=== PATIENT | female | born 1950 | race Caucasian/White ===

== ENCOUNTER → 2021-10-25 10:07 | Outpatient (CLI) | payer OTHER, SELFPAY ==
[2021-10-25 11:43] LABS: Add Manual Diff / Slide Review NO; Basophils Absolute Auto 0 /uL (0-100); Basophils Percent Auto 0.6 % (0-2); Eosinophils Absolute Auto 100 /uL (0-450); Hematocrit 36.2 % (36-46); Hemoglobin 12.4 g/dL (12.0-16.0); Lymphocytes Absolute Auto 1500 /uL (1100-4500); Lymphocytes Percent Auto 25.8 % (25-40); Mean Corpuscular HGB Conc 34.1 % (30-36); Mean Corpuscular Hemoglobin 30.1 PG (26-34); Mean Corpuscular Volume 88.2 fL (80-100); Monocytes Absolute Auto 500 /uL (0-900); Monocytes Percent Auto 8.1 % (3-14); Neutrophils Absolute Auto 3700 /uL (1500-7000); Neutrophils Percent Auto 64.5 % (50-75); Platelet Count 304 X10^3/uL (150-400); Red Cell Distribution Width 13.9 % (11.6-14.8); White Blood Cell Count 5.8 X10^3/uL (4.5-11.0)
[2021-10-25 11:54] LABS: BUN Creatinine Ratio 18.7 (6-22); Blood Urea Nitrogen 14 mg/dL (7-17); Carbon Dioxide 23 mmol/L (22-32); Chloride 105 mmol/L (98-107); Estimated Glomerular Filt Rate > 60 mL/min (>60); Glucose 116 mg/dL (80-110); HEMOLYSIS < 15 (0-50); Potassium 3.5 mmol/L (3.4-5.1); Sodium 137 mmol/L (137-145)
[2021-10-25 11:58] LABS: Hemoglobin A1C% w Est Avg Glu 5.2 % (4.0-6.0)
== END ==
PROVIDERS: PCP Family Medicine; Referring Provider Orthopaedic Surgery Foot and Ankle Surgery; Visit Provider Orthopaedic Surgery Foot and Ankle Surgery
DX: Z01.818 Encounter for other preprocedural examination (principal); R73.9 Hyperglycemia, unspecified; Z01.812 Encounter for preprocedural laboratory examination
CPT/HCPCS: 36415; 80048; 83036; 85025; 93005

== ENCOUNTER → 2021-12-21 12:40 | Outpatient (CLI) | payer OTHER, SELFPAY ==
[2021-12-21 13:24] LABS: COVID19 -Nasal RAPID Negative (Negative)
== END ==
PROVIDERS: PCP Family Medicine; Referring Provider Orthopaedic Surgery Foot and Ankle Surgery; Visit Provider Orthopaedic Surgery Foot and Ankle Surgery
DX: Z20.822 Contact with and (suspected) exposure to COVID-19 (principal)
CPT/HCPCS: 87635; C9803

== ENCOUNTER 2021-12-24 12:14 | Observation (INO) | payer OTHER, SELFPAY ==
[2021-12-15 09:45] VITALS: BMI 32.1
[2021-12-23] VITALS (14 sets, daily range): BP systolic 103–168; BP diastolic 54–91; PULSE 62–92; RESP 13–18; TEMP 35.8–37.1; O2SAT 97–100; BMI 32.1; BMI 34.7
--- NOTE | 2021-12-23 06:00 | DI.RAD.S_ITS ---
PROCEDURE: XR KNEE LT 1TO2V INDICATIONS: prosthesis placement TECHNIQUE: 2 view(s) of the knee acquired. COMPARISON: None. FINDINGS: Bones: Patient is status post knee joint arthroplasty. Hardware components are in expected positions. Visualized bony structures are intact. Soft tissues: Overlying postoperative changes are noted. IMPRESSION: Status post left total knee arthroplasty. Dictated by: Elizabeth Doty M.D. on 12/23/2021 at 11:36 Approved by: Elizabeth Doty M.D. on 12/23/2021 at 11:36
[2021-12-23] MEDS: LACTATED RINGERS 1,000 ML 42 ML IV ×2 (06:54→10:45)
[2021-12-23] MEDS: PREGABALIN 75 MG CAPSULE PO (07:11)
[2021-12-23] MEDS: ACETAMINOPHEN 325 MG TABLET 975 MG PO (07:11)
[2021-12-23] MEDS: CELECOXIB 200 MG CAPSULE PO (07:11)
--- NOTE | 2021-12-23 07:35 | PM.PREOP ---
Pre-operative Note COVID-19 COVID-19 status: Negative Interval Note History & Physical reviewed/Exam performed by Physician: Yes Changes to H&P: No
--- NOTE | 2021-12-23 07:35 | SUR.PREOP ---
Block start time [0737] . Monitoring initiated and maintained throughout procedure. Oxygen and medications given per anesthesiologist instructions. Patient remained stable throughout procedure, no adverse reactions noted. Block end time [0742].
--- NOTE | 2021-12-23 07:43 | SUR.PREOP ---
Time out performed at 0736. with anesthesia and 2 RNs.
[2021-12-23 07:58] LABS: INR 1.1 (0.9-1.3)
[2021-12-23] MEDS: CEFAZOLIN 2 GM/100 ML PREMIX 100 ML IV ×3 (08:08→23:35)
[2021-12-23] MEDS: TRANEXAMIC ACID 1,000 MG VIAL 1000 MG INJ ×2 (08:10→10:10)
--- NOTE | 2021-12-23 08:34 | SUR.OPER ---
Supine on padded OR bed. Pillow under head, arms secured on padded armboards <90 degree abduction. Safety belt across torso. Non-operative leg secured with tape over blanket over lower leg. Operative leg secured in DeMayo positioner and in control of the Surgeon. Foam padded brace at thigh of operative leg.
[2021-12-23] MEDS: MORPHINE 4 MG/ML INJ INJ (08:45)
[2021-12-23] MEDS: BUPIVACAINE 0.25% (PF) 60 ML, EPINEPHrine 0.3 MG INJ (08:45)
[2021-12-23] MEDS: BUPIVACAINE LIPOSOME 266 MG/20 ML VIAL INJ (09:28)
--- NOTE | 2021-12-23 10:33 | P.OP_ITS ---
Operative Date/Time/Diagnoses Date of procedure: 12/23/21 Time of procedure: 08:33 Pre-op diagnosis: Left knee arthritis M17.12 Long-term use of anticoagulation Post-op diagnosis: same Procedure & Clinicians Procedure: 1. Total knee arthroplasty, left CPT code 19236 Same procedure as scheduled: Yes Indications: The patient is a 71 year old female with end-stage [id number] left knee arthritis. The patient has a significant bilateral varus knee arthritis. They have failed conservative treatment with activity modifications, injections, physical therapy and bracing. They has been indicated for total knee replacement. The risks and benefits of the procedure have been discussed with the patient even opportunity to ask questions. The risks of surgery include but are not limited to infection, malalignment, fracture, loosening, persistence of pain, damage to nerves and blood vessels, need for additional procedures, DVT, PE, cardiopulmonary complications and . The patient expressed a thorough understanding of the risks and benefits of surgery and has elected to proceed. Consent was signed in the office. 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 Stop warfarin 5 days before surgery and was placed on Lovenox bridge. She will resume home dose of warfarin on postoperative day 0 in the evening and the Lovenox bridge postop day 1. She will follow up with her anticoagulation clinic. During the operation the services of physician business assistant were medically indicated and necessary to provide the exposure of the operative site for the surgical procedure and to maintain the limb in a proper position to carry out the procedure safely and efficiently. Without a qualified freezer assistant being present this would extend the operative procedure and would have made the procedure more technically difficult to perform. The business assistant was medically necessary for the proper positioning, retraction and manipulation of the limb, proper exposure, and manipulation of the tissue for implantation implants and closure. Surgeon: Monica Hernandez Compressor Station Engineer: Elisha Marquis Anesthesia Type: Spinal Operative Notes Findings: Tricompartmental osteoarthritis with bone spurs subchondral sclerosis degenerative meniscal tears and end-stage arthritic changes left knee Closure Type: primary Specimen(s): none sent Prosthetic devices, grafts, tissues, transplants, or devices: Dukes and nephew Journey II BCS femur left size 5 cobalt chromium Dukes and Nephew Journey tibia base plate non porous size 5 left Journey BCS poly left size 5-6, thickness 9 mm Round patella Praveena II 35 mm x 9 mm Estimated Blood Loss (mL): 30 Blood products transfused: none Tourniquet time (min): 103 Procedure in detail: Patient was seen in the preoperative area where the patient and site of surgery were identified in the operative knee was marked informed consent confirmed. This was the left knee. Patient received the appropriate preoperative antibiotics this was 2 g of Ancef. And other preoperative medications and was taken to the operating room placed on operating table in the supine position. Spinal anesthetic were administered. The operative extremity was then prepped and draped in the standard sterile fashion with a nonsterile tourniquet high on the thigh. Patient was placed on the green foam bolsters. A lateral post was placed at the level of the proximal thigh /trochanter area as a lateral post. Formal time-out procedure was performed confirming the patient's side and site of surgery and administration of appropriate preoperative antibiotics and implants were in the room accounted for. All were in agreement. Patient received a preoperative dose of tranexamic acid and then a 2nd dose at tourniquet release Patient was prepped and draped in the standard sterile fashion and the foot was placed into the [facility] leg montes. This was taken into high flexion and the incision was marked out over the anterior knee to the level of the medial tubercle tubercle. The Esmarch was then used for exsanguination and the tourniquet was inflated to 250 mmHg. Was made through the skin and subcutaneous tissue in high flexion this was then brought down into 30? of flexion for the medial parapatellar arthrotomy. A marker pen was used to mary the arthrotomy site for later repair. Joint fluid was evacuated. The anterior osteophytes and soft tissues were removed. Routine medial release was initially made along the medial proximal tibia with Bovie. The patella was on quite a bit of tension on attempted eversion so the quad incision was lengthened to relax it and then the patella was 1st cut using the s aw sized and prepped and then subluxed throughout the case and protected. The leg was then taken into extension and the patella was everted and the patella was cut to accommodate the patellar button. This was sized to a 35 mm button for a 9 mm thickness to recreate the original dimensions of the patella. Poly was removed and the protector replaced and the patella was subluxed and the knee was taken back up into flexion and attention was returned to the femur. Then the rotational landmarks of Whitesides line and the trans epicondylar axis were marked on the femur with electrocautery. Then the intramedullary guide for the femur was created. The distal femoral cut was made in 6? of valgus using the intramedullary guide with the cut setting on 0+ as the patient did not have a preoperative flexion contracture. The ACL and PCL released. The proximal tibia was then cut using the intramedullary guide, taking 9 mm off the less involved side this was the lateral plateau. The Chalo wing was used to check the slope through the guide. Second pass was made through the tibial cut guide with the saw after the cut tibia was removed plane down about 1 more mm and further smooth then the resection surface. In extension remainders of the medial and lateral menisci were removed. The extension flexion gaps were then checked using both the flexion extension blocks. And was selected for a 9 mm poly femur was then sized and the rotation set using the posterior condyle referencing 3? of external rotation. This measured a size 5. Cut block was then placed and the anterior, posterior and chamfer cuts were then made. The posterior osteophytes and soft tissues were then removed. Then in extension the posterior capsule was injected with a mixture of 40 mL of 0.25% Marcaine and 20 mL of Exparel care to avoid excessive injection posterior laterally. The remainder of this was saved for the capsule and subcutaneous tissue and placed during cement curing. Attention was then returned to the tibia and this was prepared with the rotation set by the extramedullary guide. Lined up with the tibial crest and the 2nd toe. The tibial trial was then pinned in place and the trial femoral components were placed. Then the intercondylar notch was cut through the femoral trial to create the box this was done with the distal than the proximal drill and then the box cut distally and then proximally. Next the insert was placed and the trial poly placed. This was stable in flexion and extension and there was a 0- 135 degree range of motion. The tibia was then finished with the drill and flange cuts and then this was removed. All trials were removed. The wound and bone was irrigated with pulsatile lavage. This was then dried with a sponge. The components were verified and opened and the cement was mixed. Cement was applied to the components and then to the bone then the tibia was cemented in place 1st followed by the femur then the patella. Excess cement was removed. With care looking around the back of the knee. Remainder of the injection was injected around the capsule. trial poly was placed back in the leg was placed into extension for the patellar cementing. After this was cured approximately 15 minutes later and the dilute Betadine solution was placed for at least 3 minutes in the wound this was then irrigated out and the final poly was placed. This was a 9 mm poly. The tourniquet was released hemostasis was achieved. Final g of tranexamic acid was given IV at the time of tourniquet release. The capsule was closed with 1. Ethibond suture. Subcutaneous layer was closed with 3-0 Vicryl suture. Skin was closed with a running V lock suture Stratafix Monocryl type suture and Dermabond. An ian dressing was placed given this patient's requirements of strong anticoagulation. An Favio wrap was applied. Anesthetic was terminated the patient was woken from anesthesia and taken to recovery room in good condition. There no immediate complications from this procedure. The patient will be maintained on a standard total knee replacement protocol with weight-bearing as tolerated. Complications: none Post-operative Condition: stable Disposition: PACU Plan for aftercare: Weightbear as tolerated. Ian dressing will remain in place. Will start range of motion and ambulation with physical therapy. Will receive 2 doses of postoperative antibiotics. Will restart home dose 5 mg of warfarin tonight then Lovenox bridge in the morning. Discharge when cleared by therapy. Follow-up in 2 weeks in Orthopedic Clinic
[2021-12-23] MEDS: HYDROCODONE/ACET 5/325 TABLET 1 TAB PO ×2 (12:09→21:19)
--- NOTE | 2021-12-23 12:46 | SUR.PHASEI ---
Straight cath done using sterile technique, 350 mls emptied. Tolerated well .
[2021-12-23] MEDS: LACTATED RINGERS 1,000 ML 100 ML IV ×2 (13:54→23:35)
[2021-12-23] MEDS: HYDROCODONE/ACET 5/325 TABLET 2 TAB PO (15:07)
--- NOTE | 2021-12-23 15:45 | PT.IIE ---
Current Diagnoses Bilateral primary osteoarthritis of knee (12/23/21) Unilateral primary osteoarthritis, left knee (12/23/21) Other specified joint disorders, unspecified knee (12/23/21) Surgery Performed Operation Date: 12/23/21 07:45 Actual Procedures p Total Knee Arthroplasty(Left) - Monica Hernandez MD Surgical History (Last Updated 12/15/21 @ 10:09 by Darshana Evans RN) History of bilateral tubal ligation History of orthopedic surgery History of surgery Hx of repair of right rotator cuff Medical History (Last Updated 12/15/21 @ 10:09 by Darshana Evans RN) DVT (deep venous thrombosis) (~2009) Osteoarthritis Physical Therapy Inpatient Evaluation/Re-Eval M1 PT/OT-IP Prior Functional Status Start: 12/23/21 16:52 Freq: NEEDED Status: Active Protocol: Document 12/23/21 15:45 AB (Rec: 12/23/21 17:01 AB [id number]) Medical Review Prior Functional Status Medical History Reviewed Yes Communication able to make needs known Mobility and Gait pt stated that she is modified independent with all mobilities using a SPC indoors but occasionally without AD; uses SPC outdoors at all times Social History Household Members spouse Living Arrangements House Number of Floors (Floors) 3 or More Floors Number of Stairs To Enter/Railing? 5 steps without rails to enter ; pt plans to stay on main level of the house Home Environment Standard Height Toilet,Tub/ Shower Home Equipment Front Wheel Walker,Straight Cane Additional Social History Comment pt plans to stay on the main level of the house and will sleep on a couch recliner M2 PT-IP Current Condition Start: 12/23/21 16:52 Freq: NEEDED Status: Active Protocol: Document 12/23/21 15:45 AB (Rec: 12/23/21 17:01 AB [email or web address]) Physical Therapy Current Condition Current Condition Evaluation Date 12/23/21 Treatment Diagnosis s/p L TKA; difficulty in walking Onset Date 12/23/21 M3 PT-IP Subjective Start: 12/23/21 16:52 Freq: NEEDED Status: Active Protocol: Document 12/23/21 15:45 AB (Rec: 12/23/21 17:01 AB [email or web address]) Subjective Physical Therapy Visit Type Type Initial Evaluation Visit Start Time 15:45 Visit Stop Time 16:35 Total Visit Minutes 50 Number of REGISTERED APPRAISER Visits 0 Physical Therapy Visit Comments Patient Comments agreeable to do PT Therapy Pain Assessment Pain When Pain Assessed At Rest Pain Present Pain Present Pain Reported Location Left Knee Intensity 3 Scale Used increases to 4/10 with mobility M4 PT-IP Mobility and Gait Start: 12/23/21 16:52 Freq: NEEDED Status: Active Protocol: Document 12/23/21 15:45 AB (Rec: 12/23/21 17:01 AB [id number]) PT-Bed Mobility Assessment Supine to Sit Supine to Sit Standby Assistance Sit to Supine Sit to Supine Standby Assistance PT-Transfer Assessment Sit to and From Stand Sit to and from Stand Moderate Assistance,1 Person Assistance,Use of Upper Extremities Equipment Transfer Assistive Device Gait Belt,Front Wheeled Walker Orthotic/Prosthetic Devices or Brace: No Comments Mobility Comments spouse in room with pt. BP: 158/86. pt completed supine to sit SBA . able to sit on EOB SBA. completed sit to stand mod A and cues and ambulated in room ~ 12 ft using FWW mod A and cues. assisted with quads activation. pt requested to go back to bed. completed sit to supine SBA. positioned pt in bed. call light and table placed within reach. caregiver training set up with spouse tomorrow at 9 am Gait Assessment Gait Gait Assistance Required: Moderate Assistance Distance (Feet) 12 Able to Maintain Weight Bearing Status Yes During Gait Assistive Devices Assistive Device Gait Belt,Front Wheeled Walker Orthotic/Prosthetic Devices or Brace: No Gait Deviations General Gait Pattern Antalgic,Decreased Stride Length,Decreased Feet Clearance,Step-to Gait Factors Limiting Gait Function Factors Limiting Gait Function Decreased Activity Tolerance, Decreased Strength,Difficulty Following Directions,Limited Range of Motion,Pain,Poor Balance,Poor Safety Awareness PT-Balance Assessment Sitting Balance and Reactions Static Sitting Balance Ability Normal Dynamic Sitting Balance Ability Good Standing Balance and Reactions Static Standing Balance Ability Fair Dynamic Standing Balance Ability Fair Device Used FWW M5 PT-IP Objective Assessments Start: 12/23/21 16:52 Freq: NEEDED Status: Active Protocol: Document 12/23/21 15:45 AB (Rec: 12/23/21 17:01 AB [id number]) Orientation Orientation/Cognition Level of Alertness Alert Orientation Name,Place,Situation Language Function Ability No Deficits Noted Safety Awareness Decreased Safety Awareness Memory Description No Deficits Noted Gross Range of Motion Lower Extremity ROM Assessment Left Impaired Impairments L knee flexion: ~ 70 deg Strength Lower Extremity Strength Assessment Left Impaired Hip 4-/5 Knee 3+/5 Coordination Assessment Gross Coordination Gross Coordination WNL Sensation Assessment Sensation Gross Sensation WNL Muscle Tone Muscle Tone WNL Yes M6 PT-IP Treatment Start: 12/23/21 16:52 Freq: NEEDED Status: Active Protocol: Document 12/23/21 15:45 AB (Rec: 12/23/21 17:01 AB [id number]) Physical Therapy Treatment Education Education Provided Precautions,Weight Bearing Status,Post-Op Packet,Safety M7 PT-IP Assessment and Plan Start: 12/23/21 16:52 Freq: NEEDED Status: Active Protocol: Document 12/23/21 15:45 AB (Rec: 12/23/21 17:01 AB [email or web address]) PT Summary Assessment and Plan Potential Rehabilitation Potential Good Status of Condition at Evaluation Evolving Summary Impairments Pain,ROM,Strength,Balance, Coordination,Sensation,Tone, Cognition,Bed Mobility, Transfers,Gait,Activity Tolerance Assessment Summary Pt with s/p L TKA and just had surgery this morning. pt requiring mod A with mobility using FWW and will likely progress during hospital stay. caregiver training set up at 9am tomorrow. will continue to assess progress. Goals Bed Mobility Goal Independent Transfer Goal Independent,Front Wheeled Walker Gait Goal Independent,Front Wheel Walker Gait Distance 150 Other Goals up/down 5 steps SPC/ACCOUNTS PAYABLE ADMINISTRATOR min A Days to Meet Goals 5 Frequency of Treatment Frequency Of Treatment Twice a Day Treatment Plan Physical Therapy Treatment Plan Bed Mobility Training,Transfer Training,Gait Training, Therapeutic Exercise,Balance Retraining,Post Op Education, Discharge Planning,Hot or Cold Pack,Neuromuscular Re-ed, Coordination Retraining,Manual Therapy Weight Bearing Status Weight Bearing Status Weight Bear as Tolerated Allowed Weight Bearing Amount (enter % LLE WBAT or #) (%) Recommendations To Nursing Amount of Assist Needed 1 Person Assist Discharge Recommendations PT Discharge Recommendations Home with Assistance, Outpatient PT Transportation Needs at Discharge Private Vehicle
[2021-12-23] MEDS: ACETAMINOPHEN 325 MG TABLET 650 MG PO ×2 (18:17→23:36)
[2021-12-23] MEDS: WARFARIN 5 MG TABLET PO (21:18)
[2021-12-23] MEDS: DOCUSATE 100 MG CAPSULE PO (21:18)
[2021-12-23] MEDS: ENOXAPARIN 100 MG/ML SYRINGE 95 MG SUBCUT (21:44)
[2021-12-24] MEDS: HYDROCODONE/ACET 5/325 TABLET 1 TAB PO (02:16)
[2021-12-24 02:32] VITALS: BP 148/73; PULSE 94; RESP 19; TEMP 36.6; O2SAT 96
--- NOTE | 2021-12-24 03:32 | PC.NURSE ---
Called construction accountant Dr. Montilla for clarification regarding Lovenox. Patients presurgical paperwork stated that Lovenox would start tomorrow but Dr. Hernandez wrote order for Lovenox to start tonight. Per Dr. Montilla, start Lovenox tonight.
[2021-12-24 06:41] VITALS: BP 156/74; PULSE 96; RESP 18; TEMP 36.1; O2SAT 99
[2021-12-24 07:26] LABS: Hematocrit 30.9 % (36-46); Hemoglobin 10.5 g/dL (12.0-16.0)
[2021-12-24] MEDS: HYDROCODONE/ACET 5/325 TABLET 2 TAB PO (08:11)
[2021-12-24] MEDS: DOCUSATE 100 MG CAPSULE PO ×2 (08:12→21:21)
[2021-12-24] MEDS: ENOXAPARIN 100 MG/ML SYRINGE 95 MG SUBCUT ×2 (08:12→21:20)
--- NOTE | 2021-12-24 09:05 | PT.IPTN ---
Current Diagnoses Bilateral primary osteoarthritis of knee (12/23/21) Unilateral primary osteoarthritis, left knee (12/23/21) Other specified joint disorders, unspecified knee (12/23/21) Surgery Performed Operation Date: 12/23/21 07:45 Actual Procedures p Total Knee Arthroplasty(Left) - Monica Hernandez MD Physical Therapy Treatment Note M2 PT-IP Current Condition Start: 12/23/21 16:52 Freq: NEEDED Status: Active Protocol: Document 12/23/21 15:45 AB (Rec: 12/23/21 17:01 AB [id number]) Physical Therapy Current Condition Current Condition Evaluation Date 12/23/21 Treatment Diagnosis s/p L TKA; difficulty in walking Onset Date 12/23/21 M3 PT-IP Subjective Start: 12/23/21 16:52 Freq: NEEDED Status: Active Protocol: Document 12/24/21 09:05 AB (Rec: 12/24/21 12:37 AB [id number]) Subjective Physical Therapy Visit Type Type Treatment Note Visit Start Time 09:05 Visit Stop Time 09:52 Total Visit Minutes 47 Number of BENZENE WORKER Visits 0 Physical Therapy Visit Comments Patient Comments agreeable to do PT Therapy Pain Assessment Pain When Pain Assessed At Rest Pain Present Pain Present Pain Reported Location Left Knee Intensity 2 Scale Used 5/10 with mobility Pain Management Techniques Apply Cold,Distraction, Modification of Treatment,Re- positioning,Timing of Activity with Medications M4 PT-IP Mobility and Gait Start: 12/23/21 16:52 Freq: NEEDED Status: Active Protocol: Document 12/24/21 09:05 AB (Rec: 12/24/21 12:37 AB [id number]) PT-Bed Mobility Assessment Supine to Sit Supine to Sit Standby Assistance PT-Transfer Assessment Sit to and From Stand Sit to and from Stand Contact Guard Assistance, Minimal Assistance,1 Person Assistance,Use of Upper Extremities Equipment Transfer Assistive Device Gait Belt,Front Wheeled Walker Orthotic/Prosthetic Devices or Brace: No Transfers Transfer Destination Chair Transfer Technique Stand Step Pivot Transfer Ability Level of Assist Contact Guard Assistance, Minimal Assistance,Use of Upper Extremities Comments Mobility Comments completed heel slides in bed. educated spouse on how to assist pt. completed supine to sit SBA. able to sit on EOB SBA. caregiver training conducted. educated spouse on how to use safety belt and how to assist pt. spouse was able to put safety belt on pt and assisted pt with sit to stand CGA to min A and ambulated pt in room ~ 20 ft CGA to min A. pt c/o increase pain and needing increase rest breaks in between tasks. completed sit to stand from chair CGA and able to stand using FWW for support CGA. instructed to do single leg stand on LLE using BUE on FWW for support and completed with 5 sec hold min to mod A. completed again with just RUE support on FWW max A. educated pt and spouse on stair climbing using SPC and CONSUMER MARKETING ANALYST. pt completed up/down step stool using SPC and CONSUMER MARKETING ANALYST max A and max cues. pt repeated with spouse assisting and PT on other side to assist and completed max A and max cues. pt stated that she has to sit down and unable to do further activities. c/o increase pain. positioned pt on chair. call light and table placed within reach. informed nurse regarding pt's pain. set up another caregiver training this afternoon at 1 pm. Gait Assessment Gait Gait Assistance Required: Contact Guard Assist,Minimum Assistance Distance (Feet) 20 Able to Maintain Weight Bearing Status Yes During Gait Assistive Devices Assistive Device Gait Belt,Front Wheeled Walker Orthotic/Prosthetic Devices or Brace: No Gait Deviations General Gait Pattern Antalgic,Decreased Stride Length,Decreased Feet Clearance,Flexed Trunk Factors Limiting Gait Function Factors Limiting Gait Function Decreased Activity Tolerance, Decreased Strength,Limited Range of Motion,Pain,Poor Balance,Poor Safety Awareness Stair Climbing Assessment Evaluation Level of Assist On Stairs Maximal Assistance,1 Person Assistance Devices Stair Climbing Assistive Devices Straight Cane Technique/Endurance Stair Climbing Direction Ascend and Descend Stair Climbing Technique Step to Step Number of Steps Climbed 1 Stair Climbing Set # Repetitions (reps) 2 M5 PT-IP Objective Assessments Start: 12/23/21 16:52 Freq: NEEDED Status: Active Protocol: Document 12/23/21 15:45 AB (Rec: 12/23/21 17:01 AB [id number]) Orientation Orientation/Cognition Level of Alertness Alert Orientation Name,Place,Situation Language Function Ability No Deficits Noted Safety Awareness Decreased Safety Awareness Memory Description No Deficits Noted Gross Range of Motion Lower Extremity ROM Assessment Left Impaired Impairments L knee flexion: ~ 70 deg Strength Lower Extremity Strength Assessment Left Impaired Hip 4-/5 Knee 3+/5 Coordination Assessment Gross Coordination Gross Coordination WNL Sensation Assessment Sensation Gross Sensation WNL Muscle Tone Muscle Tone WNL Yes M6 PT-IP Treatment Start: 12/23/21 16:52 Freq: NEEDED Status: Active Protocol: Document 12/24/21 09:05 AB (Rec: 12/24/21 12:37 AB [id number]) Physical Therapy Treatment Exercises Exercises Heel Slides Education Education Provided Safety M7 PT-IP Assessment and Plan Start: 12/23/21 16:52 Freq: NEEDED Status: Active Protocol: Document 12/24/21 09:05 AB (Rec: 12/24/21 12:37 AB [id number]) PT Summary Assessment and Plan Potential Rehabilitation Potential Fair Summary Impairments Pain,ROM,Strength,Balance, Coordination,Sensation,Tone, Cognition,Bed Mobility, Transfers,Gait,Activity Tolerance Progress Towards Goals Slow Progress due to Pain Assessment Summary Caregiver training conducted but further training is needed . Pt also unable to tolerate much activity to complete caregiver training. pt needing max A with stair climbing and at this time is unable to tolerate activity to be able to complete number of steps to d/c home safely. will continue to assess progress. caregiver training set up this afternoon at 1 pm. Goals Bed Mobility Goal Independent Transfer Goal Independent,Front Wheeled Walker Gait Goal Independent,Front Wheel Walker Gait Distance 150 Other Goals up/down 5 steps SPC/CONSUMER MARKETING ANALYST min A Days to Meet Goals 5 Frequency of Treatment Frequency Of Treatment Twice a Day Treatment Plan Physical Therapy Treatment Plan Bed Mobility Training,Transfer Training,Gait Training, Therapeutic Exercise,Balance Retraining,Post Op Education, Discharge Planning,Hot or Cold Pack,Neuromuscular Re-ed, Coordination Retraining,Manual Therapy Weight Bearing Status Weight Bearing Status Weight Bear as Tolerated Allowed Weight Bearing Amount (enter % LLE WBAT or #) (%) Recommendations To Nursing Amount of Assist Needed 1 Person Assist Discharge Recommendations PT Discharge Recommendations Home with Assistance, Outpatient PT Transportation Needs at Discharge Private Vehicle
--- NOTE | 2021-12-24 09:46 | P.DS_ITS ---
History of Present Illness History of Present Illness Date Patient Seen: 12/24/21 Time Patient Seen: 09:46 Chief complaint: Knee pain Narrative: Patient states her knee pain is been mild at rest and more moderate to severe with activity. No fever or chills. No nausea or vomiting. Discharge Providers Provider Discharge Date: 12/24/21 Primary care physician: Jl Catalan MD Consults: 12/23/21 12:41 Consult to Discharge Planning Routine Comment: Consult to Physical Therapy Evaluate & Treat Comment: Physician Instructions: postop TKA protocol Consult to Respiratory Therapy Evaluate & Treat Comment: Physician Instructions: Evaluate and treat Discharge provider: Al Jackman PA-C Summary Hospital Course Discharge Diagnosis: Left knee osteoarthritis, long-term use of anticoagulation Hospital Course: 1. Total knee arthroplasty, left CPT code 21609 Same procedure as scheduled: Yes Indications: The patient is a 71 year old female with end-stage [id number] left knee arthritis.? The patient has a significant bilateral varus knee arthritis. They have failed conservative treatment with activity modifications, injections, physical therapy and bracing.? They has been indicated for total knee replacement.? The risks and benefits of the procedure have been discussed with the patient even opportunity to ask questions.? The risks of surgery include but are not limited to infection, malalignment, fracture, loosening, persistence of pain, damage to nerves and blood vessels, need for additional procedures, DVT, PE, cardiopulmonary complications and .? The patient expressed a thorough understanding of the risks and benefits of surgery and has elected to proceed.? Consent was signed in the office. 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 Stop warfarin 5 days before surgery and was placed on Lovenox bridge.? She will resume home dose of warfarin on postoperative day 0 in the evening and the Lovenox bridge postop day 1.? She will follow up with her anticoagulation clinic. During the operation the services of physician surgical first assistant were medically indicated and necessary to provide the exposure of the operative site for the surgical procedure and to maintain the limb in a proper position to carry out the procedure safely and efficiently.? Without a qualified diploma dental assistant being present this would extend the operative procedure and would have made the procedure more technically difficult to perform.? The surgical first assistant was medically necessary for the proper positioning, retraction and manipulation of the limb, proper exposure, and manipulation of the tissue for implantation implants and closure. Surgeon: Monica Hernandez Prestidigitator: Elisha Marquis Anesthesia Type: Spinal Operative Notes Findings: Tricompartmental osteoarthritis with bone spurs subchondral sclerosis degenerative meniscal tears and end-stage arthritic changes left knee Closure Type: primary Specimen(s): none sent Prosthetic devices, grafts, tissues, transplants, or devices: Dukes and nephew Journey II BCS femur left size 5 cobalt chromium Dukes and Nephew Journey tibia base plate non porous size 5 left Journey BCS poly left size 5-6, thickness 9 mm Round patella Praveena II 35 mm x 9 mm Estimated Blood Loss (mL): 30 Blood products transfused: none Tourniquet time (min): 103 Patient admitted to the hospital for left total knee arthroplasty. Patient consented to the same. Patient underwent left total knee arthroplasty December 23, 2021. Patient back in her room recovering well as in stable condition. Weightbear as tolerated.? Velasquez dressing will remain in place.? Will start range of motion and ambulation with physical therapy.? Will receive 2 doses of postoperative antibiotics.? Will restart home dose 5 mg of warfarin tonight then Lovenox bridge in the morning.? Discharge when cleared by therapy.? Follow-up in 2 weeks in Orthopedic Clinic Status at Discharge Cognitive/behavioral status at discharge: at baseline, oriented Functional status at discharge: uses cane/walker Overall status at discharge: patient is progressing back to baseline Exam Vital Signs (past 8 hours): - 12/24/21 02:32 12/24/21 06:41 Temperature 97.8 F 97 F L Pulse Rate 94 H 96 H Respiratory Rate 19 18 Blood Pressure 148/73 H 156/74 H Pulse Oximetry 96 99 Oxygen Flow Rate 0 Oxygen Delivery Method Room Air Oxygen Flow Rate 0 Narrative Exam Narrative: 71-year-old female sitting comfortably in bedside chair no apparent distress. Velasquez dressing is on and functioning. Dressing is Clean, dry, intact.. Motor functions intact distal left lower extremity. Sensation grossly intact to light touch distal left lower extremity. Const General: cooperative and comfortable Nutritional Appearance: average body habitus Resp Effort & Inspection: normal respiratory effort and able to speak in complete sentences Objective Labs Result Diagrams: 12/24/21 06:57 Labs: Laboratory Results - last 24 hr 12/24/21 06:57 Hgb 10.5 L Hct 30.9 L PFSH Medical History DVT (deep venous thrombosis) (~2009) Osteoarthritis Surgical History History of bilateral tubal ligation History of orthopedic surgery History of surgery Hx of repair of right rotator cuff Social History household members: spouse Smoking Status: Former smoker alcohol intake: current Discharge Assessment & Plan Assessment and Plan Assessment: Patient progressing as expected status post left total knee arthroplasty Plan of Treatment: Weightbear as tolerated.? Velasquez dressing will remain in place.? Will start range of motion and ambulation with physical therapy.? Will receive 2 doses of postoperative antibiotics.? Restarted home dose 5 mg of warfarin last night then Lovenox bridge this morning.? Discharge home today when cleared by therapy.? Follow-up in 2 weeks in Orthopedic Clinic Discharge Plan Discharge Plan Patient Disposition: Home Provider Discharge Comment: Discharge home today after physical therapy if safe for home environment Discharge orders & Medications Discharge Orders: Discharge (Order); Ordered 12/24/21 Ordered By: Al Jackman Prescriptions: New acetaminophen 325 mg Tablet 650 mg PO Q6HR Qty: 60 0RF hydrocodone-acetaminophen 5-325 mg Tablet 2 tab PO Q4HR PRN (Reason: Pain, Moderate (4-6)) Qty: 60 0RF Continued warfarin 5 mg Tablet 5 mg PO DAILY enoxaparin [Lovenox] 100 mg/mL Syringe 100 mg SUBCUT DAILY Discontinued acetaminophen 500 mg Tablet 1,000 mg PO Q6H PRN (Reason: Pain) Follow up/Referrals: Monica Hernandez MD [Physician] - (2 weeks) Jl Catalan MD [Primary Care Provider] - Diet/Activity/Treatments Diet: Diet as Tolerated Activity: Weight-bearing as tolerated Other treatments: Patient started back on her home dose of 5 mg of warfarin and will bridge Lovenox Skin/Wound/Dressing Care Report to your healthcare provider any signs of infection, such as:: chills, fever, increased pain, unusual drainage and unusual redness Dressing: Keep dressing clean and dry Other wound treatment: Postoperative total knee instructions Dressing/Wound care: -may Remove the Favio wrap 48 hours after surgery. -Keep velasquez dressing or Aquacell dressing in place until postoperative follow-up office visit. -you may see some drainage on the bandage, this is ok. If it is leaking or saturated, then the dressing can be changed to clean gauze or a clean surgical dressing from a pharmacy or reinforced with additional gauze and paper tape or dressings over the top. Otherwise, just keep dressing in place until follow up. -if you have been given a velasquez dressing this dressing has a VAC in it that works for 7 days then will turn off at that point the battery pack can be cut off but the rest of the dressing should remain in place. -Okay to shower. Keep wound out of direct water stream. No soaking or submerging until all the scabs fall off (approximately 6 weeks). -Please call the office if dressing becomes significantly wet, soiled, or saturated. Activities: -Weight-bearing as tolerated. Use front wheeled walker, and progress to cane when safe. -Continue with home exercises as directed by your physical therapist. -Elevate ?toes above the nose if you have significant swelling in your lower leg. (A wedge pillow is easiest.) -Ice your incision as needed for pain/inflammation/swelling. Protect your skin with a folded pillowcase. -do not put any pillows directly injury Uni you may to the patella under your heal but the goal is to make sure that your knee can fully straighten. Follow-up: -Follow-up with your surgeon or PA in the office in 10-14 days after surgery. -Follow-up with your surgeon 6 weeks postoperatively. Call the office if you have chest pain, shortness of breath, significant swelling that will not resolve with elevating, fever over 101?, significantly worsening pain. [facility]: [phone] You have been discharged with medications. These have already been sent to your pharmacy. Pain include pain medications: Oxycodone or [place]: take 5 mg orally every 4 hours as needed for pain. If your pain is more severe you may take up to 2 every 4 hours for pain. Take the smallest dose necessary. Narcotic medication can make you feel constipated. You can get wfsy-rwb-[id number] stool softener such as docusate sodium-Colace at a pharmacy to help with this. And acetaminophen (Tylenol) take 500-1000 mg 3 times a day for pain control. You also have a prescription for Zofran (ondansetron) this is a strong anti nausea medication that can be taken up to every 8 hours as needed for nausea You will be restarted on your home dose of Coumadin on the day of surgery at night and then restart the Lovenox bridge on the 1st day after surgery. Then follow the instructions from your anticoagulation clinic. Visit Report/Discharge Packet Instructions: DI for Knee Replacement Stand Alone Forms: Surgery Discharge Discharge Data Primary Care Provider: Jl Catalan Attending Provider: Monica Hernandez VTE Deep Vein Thrombosis/Pulmonary Embolism Present on Admission: No
[2021-12-24] MEDS: HYDROMORPHONE 2 MG TABLET PO ×4 (10:21→21:19)
--- NOTE | 2021-12-24 10:52 | CM.DANOTE ---
DCP: Case received, EMR reviewed and met with patient. Spouse, Ja, was at bedside. Introduced self and role. Was able to obtain information regarding patient's baseline activity status prior to hospitalization. DCP assessment completed with information currently available. Patient is a 71 year old female who admitted yesterday morning to the care of the orthopedic team. PCP: Dr. Catalan. Payer: confirmed: [facility] Patient came to the hospital via private vehicle for a surgical procedure. Patient had left total knee arthroplasty. Patient has history of osteoarthritis. Met with patient in her room. Spouse was at bedside. Patient resides in [facility] with spouse, Ja. At her baseline, she uses a cane, otherwise, is independent. P: Patient should be able to go home when medically stable. Mary Jacobo RN/Mobile Heavy Equipment Mechanic Discharge Planning/Care Management CM Discharge Assessment Start: 12/24/21 10:45 Freq: Status: Active Protocol: Document 12/24/21 10:50 (Rec: 12/24/21 10:52 [id number]) Discharge Planning Assessment Assigned Data Collection Specialist Mary Jacobo RN/Mobile Heavy Equipment Mechanic Advance Directives? Yes Advance Directives on File No History Provided By Patient,Medical Record Prior Living Arrangements House Household Members spouse Type of transporation used prior to Drives own vehicle admit Independent with ADL's Yes Is patient alert and oriented? Yes DME Already Rented / Owned Cane Patient/Family Preference OP PT Therapy Barriers to Discharge No Comment Has a supportive at home. Discharge Plan Home Referrals Initiated None needed Whiteboard Updated in Patient Room with Yes name and ext. # of Data Collection Specialist Next Review Type Continued Stay Review Pre-Anesthesia Assessment Start: 12/15/21 09:45 Freq: Status: Complete Protocol: Document 12/15/21 09:45 [facility] (Rec: 12/15/21 10:21 CAB [id number]) Pre-Anesthesia Assessment Preferred Name Yamel Patient Information Reviewed Via Phone Assessment Assessment Completed With Patient Diagnostic Results BMP/CMP,CBC,EKG Comment Labs/ECG @ [facility] 10/25/21, COVID screen @ 12/21/21 Primary Care Provider Jl Catalan Seen Specialist in Last 12 Months Yes Specialist Seen Electric Welder Helper,Orthopedist Primary Language [place] [employer] Guest Service Agent Required No Height 5 ft 7 in Weight 205 lb Body Mass Index (BMI) 32.1 Hearing Ability Normal Visual Assist Contacts,Glasses Dentition Type Teeth, Natural Present Barriers to Learning None Hx Anesthesia Reactions No Hx Family Anesthesia Reaction No Hx Malignant Hyperthermia No Hx Blood Transfusions No Anesthesia Review Requested No alcohol intake current alcohol intake frequency a few times a week Smoking Status Former smoker how long ago did patient quit smoking Quit in college Substance Use Type does not use Pain Present Pain Reported Musculoskeletal Symptoms Abnormal Gait,Back Pain, Difficulty Walking,Joint Pain History of Falling (Recent or History of Yes ) Patient is completely paralyzed or No completely immobile Prosthesis or Orthotic Device Cane Mental Status Oriented to own ability Is patient on oxygen? No Does patient have VILLATORO/SOB Yes: Pt feels r/t deconditioning Hx Sleep Apnea No Currently Taking a Beta [place] No Can You Climb a Flight of Stairs Without No SOB Hx SOB Yes: Pt feels r/t deconditioning Hx Syncope or Dizziness No Anti-Coagulant Therapy Yes: Warfarin -will hold 5 days prior w/Lovenox bridging per PCP Has a Cost Accountant No Cardiac Testing No Hx Pacemaker/ICD No Pacemaker Rep Required? No Cardiac Clearance Received Not Applicable Diet Type At Home Regular dysphagia No Urinary Catheter Present No Hx Urinary Self Catheterization No Diabetes No Patient No Lactating No Hx Drug Resistant Organism No Presence of External or Internal Medical No Devices Have you had any close contact with No someone diagnosed with COVID-19? Received a COVID vaccine? Yes Received all doses? Yes Marital Status Lives With spouse Prior Living Arrangements House Number of Floors (Floors) 3 or More Floors Support System Spouse Does the Patient Have Assistance After Yes Surgery Patient Discharge Plan Description Return Home Comment Pt advised overnight length of stay per surgeon Feels Safe in Current Environment Yes Been Physically Hurt or Threatened By a No Person in Current Environment Do you have thoughts of harming yourself None or others? Are you currently considering suicide? No Do you have a plan to hurt yourself or No Plan others? Do You Have Any Spiritual Beliefs That No May Affect Your HC Choices? Do You Have Any Cultural Practices That No May Affect Your HC Choices? Who Can We Speak to About Patient's Care Family, friends Identifying Code for Release of Patient Declines to issue Information Health Care Proxy/Next of Kin Ja () Health Care Proxy Emergency Contact Name Ja () Emergency Contact Advance Directives? Yes Advance Directives on File No Requested Patient Bring Advanced Yes Directives DOS Power of Sound Ranging Crewmember Yes Power of Sound Ranging Crewmember Name Ja () Power of Sound Ranging Crewmember PAC Instructions Do not shave/clip surgical site,Durable medical equipment ,Medications to take/avoid, Nasal antibiotic,No ETOH/ petroleum product on skin DOS, NPO,Pre-surgical wash,Sturdy shoes/comfortable clothes,Do not bring valuables and remove jewelry
[2021-12-24 11:15] VITALS: BP 181/76; PULSE 72; RESP 14; TEMP 36.6; O2SAT 100
[2021-12-24 11:54] VITALS: BP 157/80
[2021-12-24] MEDS: hydrOXYzine pamoate 25 MG CAPSULE PO ×2 (13:05→21:18)
[2021-12-24] MEDS: ACETAMINOPHEN 325 MG TABLET 650 MG PO ×2 (13:05→17:12)
--- NOTE | 2021-12-24 13:05 | PT.IPTN ---
Current Diagnoses Bilateral primary osteoarthritis of knee (12/23/21) Unilateral primary osteoarthritis, left knee (12/23/21) Other specified joint disorders, unspecified knee (12/23/21) Surgery Performed Operation Date: 12/23/21 07:45 Actual Procedures p Total Knee Arthroplasty(Left) - Monica Hernandez MD Physical Therapy Treatment Note M2 PT-IP Current Condition Start: 12/23/21 16:52 Freq: NEEDED Status: Active Protocol: Document 12/23/21 15:45 AB (Rec: 12/23/21 17:01 AB [id number]) Physical Therapy Current Condition Current Condition Evaluation Date 12/23/21 Treatment Diagnosis s/p L TKA; difficulty in walking Onset Date 12/23/21 M3 PT-IP Subjective Start: 12/23/21 16:52 Freq: NEEDED Status: Active Protocol: Document 12/24/21 13:05 AB (Rec: 12/24/21 14:29 AB [email or web address]) Subjective Physical Therapy Visit Type Type Treatment Note Visit Start Time 13:05 Visit Stop Time 13:35 Total Visit Minutes 30 Number of PLATE PAINTER APPRENTICE Visits 0 Physical Therapy Visit Comments Patient Comments pt is agreeable to do PT; continues to c/o increase pain Therapy Pain Assessment Pain When Pain Assessed During Mobility Pain Present Pain Present Pain Reported Location Left Knee Intensity 7 Scale Used Numeric (0 - 10) Pain Management Techniques Apply Cold,Distraction, Elevation,Modification of Treatment,Re-positioning, Timing of Activity with Medications M4 PT-IP Mobility and Gait Start: 12/23/21 16:52 Freq: NEEDED Status: Active Protocol: Document 12/24/21 13:05 AB (Rec: 12/24/21 14:29 AB [email or web address]) PT-Bed Mobility Assessment Supine to Sit Supine to Sit Standby Assistance Sit to Supine Sit to Supine Minimal Assistance PT-Transfer Assessment Sit to and From Stand Sit to and from Stand Contact Guard Assistance, Minimal Assistance,1 Person Assistance,Use of Upper Extremities Equipment Transfer Assistive Device Gait Belt,Front Wheeled Walker Orthotic/Prosthetic Devices or Brace: No Transfers Transfer Destination Chair Transfer Technique ambulated Transfer Ability Level of Assist Contact Guard Assistance, Minimal Assistance,1 Person Assistance,Use of Upper Extremities Comments Mobility Comments caregiver training conducted. pt c/o increase knee pain of 7 /10 with movement. pt completed supine to sit SBA. spouse able to put safety belt on pt and assisted pt with sit to stand CGA to min A, ambulated pt in room ~ 15 ft using FWW CGA to min A. completed up/down step stool using SPC on R and CYTOLOGY SUPERVISOR on L requiring max A x 1-2 and max cues. pt unable to do further activities and requested to go back to bed. completed sit to supine min A with LLE elevation and spouse was able to assist. positioned pt in bed. call light and table placed within reach. caregiver training set up again tomorrow at 930am. Gait Assessment Gait Gait Assistance Required: Contact Guard Assist,Minimum Assistance Distance (Feet) 15 Able to Maintain Weight Bearing Status Yes During Gait Assistive Devices Assistive Device Gait Belt,Front Wheeled Walker Orthotic/Prosthetic Devices or Brace: No Gait Deviations General Gait Pattern Antalgic,Decreased Stride Length,Decreased Feet Clearance Factors Limiting Gait Function Factors Limiting Gait Function Decreased Activity Tolerance, Decreased Strength,Limited Range of Motion,Pain,Poor Balance,Poor Safety Awareness Stair Climbing Assessment Evaluation Level of Assist On Stairs Maximal Assistance,1 Person Assistance,2 Person Assistance Devices Stair Climbing Assistive Devices Straight Cane Technique/Endurance Stair Climbing Direction Ascend and Descend Stair Climbing Technique Step to Step Number of Steps Climbed 1 Stair Climbing Set # Repetitions (reps) 1 M5 PT-IP Objective Assessments Start: 12/23/21 16:52 Freq: NEEDED Status: Active Protocol: Document 12/23/21 15:45 AB (Rec: 12/23/21 17:01 AB [email or web address]) Orientation Orientation/Cognition Level of Alertness Alert Orientation Name,Place,Situation Language Function Ability No Deficits Noted Safety Awareness Decreased Safety Awareness Memory Description No Deficits Noted Gross Range of Motion Lower Extremity ROM Assessment Left Impaired Impairments L knee flexion: ~ 70 deg Strength Lower Extremity Strength Assessment Left Impaired Hip 4-/5 Knee 3+/5 Coordination Assessment Gross Coordination Gross Coordination WNL Sensation Assessment Sensation Gross Sensation WNL Muscle Tone Muscle Tone WNL Yes M6 PT-IP Treatment Start: 12/23/21 16:52 Freq: NEEDED Status: Active Protocol: Document 12/24/21 13:05 AB (Rec: 12/24/21 14:29 AB [email or web address]) Physical Therapy Treatment Education Education Provided Safety M7 PT-IP Assessment and Plan Start: 12/23/21 16:52 Freq: NEEDED Status: Active Protocol: Document 12/24/21 13:05 AB (Rec: 12/24/21 14:29 AB [id number]) PT Summary Assessment and Plan Potential Rehabilitation Potential Good Summary Impairments Pain,ROM,Strength,Balance, Coordination,Sensation,Tone, Cognition,Bed Mobility, Transfers,Gait,Activity Tolerance Progress Towards Goals Slow Progress due to Pain Assessment Summary caregiver training conducted but further training is needed . pt continues to have increase L knee pain and unable to tolerate much activity and needing max A x 1 -2 with stair climbing. Caregiver training set up again for tomorrow at 930 am. will continue to assess progress. Goals Bed Mobility Goal Independent Transfer Goal Independent,Front Wheeled Walker Gait Goal Independent,Front Wheel Walker Gait Distance 150 Other Goals up/down 5 steps SPC/CYTOLOGY SUPERVISOR min A Days to Meet Goals 5 Frequency of Treatment Frequency Of Treatment Twice a Day Treatment Plan Physical Therapy Treatment Plan Bed Mobility Training,Transfer Training,Gait Training, Therapeutic Exercise,Balance Retraining,Post Op Education, Discharge Planning,Hot or Cold Pack,Neuromuscular Re-ed, Coordination Retraining,Manual Therapy Weight Bearing Status Weight Bearing Status Weight Bear as Tolerated Allowed Weight Bearing Amount (enter % LLE WBAT or #) (%) Recommendations To Nursing Amount of Assist Needed 1 Person Assist Discharge Recommendations PT Discharge Recommendations Home with 23/10 Assist Available,Home Health, Outpatient PT Transportation Needs at Discharge Private Vehicle
--- NOTE | 2021-12-24 13:41 | PC.NURSE ---
patient did not pass physical therapy. patient still needs to do stairs. switched her pain med to dilaudid.
[2021-12-24 17:50] VITALS: BP 179/79; PULSE 105; RESP 18; TEMP 36.9; O2SAT 97
[2021-12-24] MEDS: WARFARIN 5 MG TABLET PO (21:18)
[2021-12-24 23:30] VITALS: BP 163/72; PULSE 99; RESP 16; TEMP 36.5; O2SAT 98
--- NOTE | 2021-12-25 01:39 | PC.NURSE ---
Pt cooperative w/ care and understands post-op complications/protocols. Pt had been in and out of sleep throughout shift. Pt requested pain meds early in shift for sleep, dilaudid and vistaril were given as this worked previously during the day.
[2021-12-25] MEDS: ACETAMINOPHEN 325 MG TABLET 650 MG PO ×2 (02:19→15:19)
[2021-12-25] MEDS: hydrOXYzine pamoate 25 MG CAPSULE PO (05:10)
[2021-12-25] MEDS: HYDROMORPHONE 2 MG TABLET PO ×4 (05:11→17:23)
[2021-12-25 05:12] VITALS: BP 173/82; PULSE 105; RESP 18; TEMP 36.6; O2SAT 96
[2021-12-25 08:01] VITALS: BP 184/79; PULSE 94; RESP 18; TEMP 36.7; O2SAT 98
[2021-12-25] MEDS: DOCUSATE 100 MG CAPSULE PO ×2 (08:41→20:31)
[2021-12-25] MEDS: ENOXAPARIN 100 MG/ML SYRINGE 95 MG SUBCUT ×2 (08:41→20:31)
--- NOTE | 2021-12-25 09:09 | PC.NURSE ---
pt c/o left knee pain medicated with dilaudid po, ambulated to bathroom using walking and sba now in chair. cms intact, velasquez in place. awaiting PT
--- NOTE | 2021-12-25 10:34 | PT.IPTN ---
Current Diagnoses Bilateral primary osteoarthritis of knee (12/23/21) Unilateral primary osteoarthritis, left knee (12/23/21) Other specified joint disorders, unspecified knee (12/23/21) Surgery Performed Operation Date: 12/23/21 07:45 Actual Procedures p Total Knee Arthroplasty(Left) - Monica Hernandez MD Physical Therapy Treatment Note M2 PT-IP Current Condition Start: 12/23/21 16:52 Freq: NEEDED Status: Active Protocol: Document 12/25/21 10:22 [facility] (Rec: 12/25/21 10:34 [facility] [id number]) Physical Therapy Current Condition Current Condition Evaluation Date 12/23/21 Treatment Diagnosis s/p L TKA; difficulty in walking Onset Date 12/23/21 M3 PT-IP Subjective Start: 12/23/21 16:52 Freq: NEEDED Status: Active Protocol: Document 12/25/21 10:22 [facility] (Rec: 12/25/21 10:34 [facility] [id number]) Subjective Physical Therapy Visit Type Type Treatment Note Visit Start Time 09:30 Visit Stop Time 10:15 Total Visit Minutes 45 Number of BILL CLERK Visits 0 Physical Therapy Visit Comments Patient Comments Pt is agreeable to do PT. She notes she was able to get up with nursing and ambulated to the bathroom this am. Her is present for caregiver training Therapy Pain Assessment Pain When Pain Assessed During Mobility Pain Present Pain Present Pain Reported Location Left Knee Intensity 6 Scale Used Numeric (0 - 10) Pain Management Techniques Apply Cold,Distraction, Elevation,Modification of Treatment,Re-positioning, Timing of Activity with Medications M4 PT-IP Mobility and Gait Start: 12/23/21 16:52 Freq: NEEDED Status: Active Protocol: Document 12/25/21 10:22 [facility] (Rec: 12/25/21 10:34 [facility] [id number]) PT-Bed Mobility Assessment Supine to Sit Supine to Sit Standby Assistance Sit to Supine Sit to Supine Minimal Assistance PT-Transfer Assessment Sit to and From Stand Sit to and from Stand Contact Guard Assistance, Minimal Assistance,1 Person Assistance,Use of Upper Extremities Equipment Transfer Assistive Device Gait Belt,Front Wheeled Walker Orthotic/Prosthetic Devices or Brace: No Transfers Transfer Destination Chair Transfer Technique ambulated Transfer Ability Level of Assist Contact Guard Assistance, Minimal Assistance,1 Person Assistance,Use of Upper Extremities Comments Mobility Comments caregiver training conducted. pt reports decreased pain today with movement. pt completed sit from bedside chair to stand spouse able to put safety belt on pt and assisted pt with sit to stand CGA and ambulated pt in room ~ 15 ft using FWW CGA to hallway where there was a wheel chair waiting for stair training. Pt completed 1 set of 3 stairs up and down using both hand rails with her assisting her. She would like to try using the cane but was too fatigued following the first set of stairs. Pt was wheeled back to her room where she ambulated 8 feet to the bathroom to void prior to ambulating back to bed with CGA. Pt completed sit to supine min A with LLE elevation and spouse was able to assist. positioned pt in bed. call light and table placed within reach. Gait Assessment Gait Gait Assistance Required: Contact Guard Assist,Minimum Assistance Distance (Feet) 30 Assistive Devices Assistive Device Gait Belt,Front Wheeled Walker Orthotic/Prosthetic Devices or Brace: No Gait Deviations General Gait Pattern Antalgic,Decreased Stride Length,Decreased Feet Clearance Factors Limiting Gait Function Factors Limiting Gait Function Decreased Activity Tolerance, Decreased Strength,Limited Range of Motion,Pain,Poor Balance,Poor Safety Awareness Stair Climbing Assessment Evaluation Level of Assist On Stairs Maximal Assistance,1 Person Assistance,2 Person Assistance Devices Stair Climbing Assistive Devices Left Railing,Right Railing Technique/Endurance Stair Climbing Direction Ascend and Descend Stair Climbing Technique Step to Step Number of Steps Climbed 3 Stair Climbing Set # Repetitions (reps) 1 Comments Stair Climbing Comments pt was able to ascend and descend 3 stairs with rails. She did lean heavily on rails for assist. PT-Balance Assessment Sitting Balance and Reactions Static Sitting Balance Ability Normal Dynamic Sitting Balance Ability Good Standing Balance and Reactions Static Standing Balance Ability Good Dynamic Standing Balance Ability Good Device Used FWW M5 PT-IP Objective Assessments Start: 12/23/21 16:52 Freq: NEEDED Status: Active Protocol: Document 12/25/21 10:22 [facility] (Rec: 12/25/21 10:34 [facility] [id number]) Orientation Orientation/Cognition Level of Alertness Alert Orientation Name,Place,Situation Language Function Ability No Deficits Noted Safety Awareness Decreased Safety Awareness Memory Description No Deficits Noted Gross Range of Motion Lower Extremity ROM Assessment Left Impaired Impairments left knee flexion 75 deg Coordination Assessment Gross Coordination Gross Coordination WNL Sensation Assessment Sensation Gross Sensation WNL Muscle Tone Muscle Tone WNL Yes M6 PT-IP Treatment Start: 12/23/21 16:52 Freq: NEEDED Status: Active Protocol: Document 12/25/21 10:22 [facility] (Rec: 12/25/21 10:34 [facility] [id number]) Physical Therapy Treatment Exercises Exercises Ankle Pumps,Quad Sets,Heel Slides Education Education Provided Safety M7 PT-IP Assessment and Plan Start: 12/23/21 16:52 Freq: NEEDED Status: Active Protocol: Document 12/25/21 10:22 [facility] (Rec: 12/25/21 10:34 [facility] [id number]) PT Summary Assessment and Plan Potential Rehabilitation Potential Good Summary Impairments Pain,ROM,Strength,Balance, Coordination,Sensation,Tone, Cognition,Bed Mobility, Transfers,Gait,Activity Tolerance Progress Towards Goals Slow Progress due to Pain Assessment Summary caregiver training conducted and pt did much better today with pain control. She was able to complete 1 set of 3 stairs ascending and descending. She required heavily on rails to complete this. Pt does not currently have rails for 5 sets to ascend to get into her house. Her is working today on getting a rail installed. Pt would benefit from another session of PT this afternoon working with her SPC on the steps prior to DC Goals Bed Mobility Goal Independent Transfer Goal Independent,Front Wheeled Walker Gait Goal Independent,Front Wheel Walker Gait Distance 150 Other Goals up/down 5 steps SPC/CARDIOVASCULAR OPERATING ROOM NURSE min A Days to Meet Goals 5 Frequency of Treatment Frequency Of Treatment Twice a Day Treatment Plan Physical Therapy Treatment Plan Bed Mobility Training,Transfer Training,Gait Training, Therapeutic Exercise,Balance Retraining,Post Op Education, Discharge Planning,Hot or Cold Pack,Neuromuscular Re-ed, Coordination Retraining,Manual Therapy Weight Bearing Status Weight Bearing Status Weight Bear as Tolerated Allowed Weight Bearing Amount (enter % LLE WBAT or #) (%) Recommendations To Nursing Amount of Assist Needed 1 Person Assist Discharge Recommendations PT Discharge Recommendations Home with 23/10 Assist Available,Home Health, Outpatient PT Transportation Needs at Discharge Private Vehicle
--- NOTE | 2021-12-25 11:30 | P.PN_ITS ---
Subjective Subjective Date Patient Seen: 12/25/21 Time Patient Seen: 11:30 Interval history: Patient is status post total knee arthroplasty. Patient is doing much better today than yesterday. Patient was having difficulty ambulating yesterday and was unable to be discharged home. Patient states that she is doing much better and was able to get to the bathroom by herself. Still having difficulty with stairs which they are continuing to work with. Based on physical therapy recommendations patient will most likely be discharged home tomorrow. Exam Vital Signs (past 8 hours): - 12/25/21 05:12 12/25/21 08:01 Temperature 97.9 F 98.0 F Pulse Rate 105 H 94 H Respiratory Rate 18 18 Blood Pressure 173/82 H 184/79 H Pulse Oximetry 96 98 Oxygen Flow Rate 0 0 Oxygen Delivery Method Room Air Oxygen Flow Rate 0 Narrative Exam Narrative: Patient's dressing is clean and dry. Positive dorsiflexion and plantar flexion. Palpable pedal pulses. Brisk cap refill. Nontender to palpation to the posterior aspect of the calf. Objective Labs Result Diagrams: 12/24/21 06:57 [facility] Medical History DVT (deep venous thrombosis) (~2009) Osteoarthritis Surgical History History of bilateral tubal ligation History of orthopedic surgery History of surgery Hx of repair of right rotator cuff Social History household members: spouse Smoking Status: Former smoker alcohol intake: current Assessment & Plan Post-op Postoperative Procedures: Procedures Operation Date: 12/23/21 07:45 Actual Procedure Side Surgeon p Total Knee Arthroplasty Left Monica Hernandez MD Postoperative day: 2 Postoperative plan narrative: Patient doing well after total knee arthroplasty. Patient will most likely be discharged home tomorrow. Quality VTE Deep Vein Thrombosis/Pulmonary Embolism Present on Admission: No
--- NOTE | 2021-12-25 16:13 | PT.IPTN ---
Current Diagnoses Bilateral primary osteoarthritis of knee (12/23/21) Unilateral primary osteoarthritis, left knee (12/23/21) Other specified joint disorders, unspecified knee (12/23/21) Surgery Performed Operation Date: 12/23/21 07:45 Actual Procedures p Total Knee Arthroplasty(Left) - Monica Hernandez MD Physical Therapy Treatment Note M2 PT-IP Current Condition Start: 12/23/21 16:52 Freq: NEEDED Status: Active Protocol: Document 12/25/21 16:06 [facility] (Rec: 12/25/21 16:12 [facility] [id number]) Physical Therapy Current Condition Current Condition Evaluation Date 12/23/21 Treatment Diagnosis s/p L TKA; difficulty in walking Onset Date 12/23/21 M3 PT-IP Subjective Start: 12/23/21 16:52 Freq: NEEDED Status: Active Protocol: Document 12/25/21 16:06 [facility] (Rec: 12/25/21 16:12 [facility] [id number]) Subjective Physical Therapy Visit Type Type Treatment Note Visit Start Time 15:38 Visit Stop Time 16:00 Total Visit Minutes 22 Number of BOTTLE MACHINE OPERATOR Visits 0 Physical Therapy Visit Comments Patient Comments Pt reports she did not receive pain meds until 1:15 and by that time was in a great amount of pain. She had tynelol at 3:15 and got up to use the bathroom at that time. She agrees to ther ex and knee ROM but does not wish to get back up or to do stairs Therapy Pain Assessment Pain When Pain Assessed At Rest Pain Present Pain Present Pain Reported Location Left Knee Intensity 5 Scale Used Numeric (0 - 10) Pain Management Techniques Apply Cold,Distraction, Elevation,Modification of Treatment,Re-positioning, Timing of Activity with Medications M4 PT-IP Mobility and Gait Start: 12/23/21 16:52 Freq: NEEDED Status: Active Protocol: Document 12/25/21 10:22 [facility] (Rec: 12/25/21 10:34 [facility] [id number]) PT-Bed Mobility Assessment Supine to Sit Supine to Sit Standby Assistance Sit to Supine Sit to Supine Minimal Assistance PT-Transfer Assessment Sit to and From Stand Sit to and from Stand Contact Guard Assistance, Minimal Assistance,1 Person Assistance,Use of Upper Extremities Equipment Transfer Assistive Device Gait Belt,Front Wheeled Walker Orthotic/Prosthetic Devices or Brace: No Transfers Transfer Destination Chair Transfer Technique ambulated Transfer Ability Level of Assist Contact Guard Assistance, Minimal Assistance,1 Person Assistance,Use of Upper Extremities Comments Mobility Comments caregiver training conducted. pt reports decreased pain today with movement. pt completed sit from bedside chair to stand spouse able to put safety belt on pt and assisted pt with sit to stand CGA and ambulated pt in room ~ 15 ft using FWW CGA to hallway where there was a wheel chair waiting for stair training. Pt completed 1 set of 3 stairs up and down using both hand rails with her assisting her. She would like to try using the cane but was too fatigued following the first set of stairs. Pt was wheeled back to her room where she ambulated 8 feet to the bathroom to void prior to ambulating back to bed with CGA. Pt completed sit to supine min A with LLE elevation and spouse was able to assist. positioned pt in bed. call light and table placed within reach. Gait Assessment Gait Gait Assistance Required: Contact Guard Assist,Minimum Assistance Distance (Feet) 30 Assistive Devices Assistive Device Gait Belt,Front Wheeled Walker Orthotic/Prosthetic Devices or Brace: No Gait Deviations General Gait Pattern Antalgic,Decreased Stride Length,Decreased Feet Clearance Factors Limiting Gait Function Factors Limiting Gait Function Decreased Activity Tolerance, Decreased Strength,Limited Range of Motion,Pain,Poor Balance,Poor Safety Awareness Stair Climbing Assessment Evaluation Level of Assist On Stairs Maximal Assistance,1 Person Assistance,2 Person Assistance Devices Stair Climbing Assistive Devices Left Railing,Right Railing Technique/Endurance Stair Climbing Direction Ascend and Descend Stair Climbing Technique Step to Step Number of Steps Climbed 3 Stair Climbing Set # Repetitions (reps) 1 Comments Stair Climbing Comments pt was able to ascend and descend 3 stairs with rails. She did lean heavily on rails for assist. PT-Balance Assessment Sitting Balance and Reactions Static Sitting Balance Ability Normal Dynamic Sitting Balance Ability Good Standing Balance and Reactions Static Standing Balance Ability Good Dynamic Standing Balance Ability Good Device Used FWW M5 PT-IP Objective Assessments Start: 12/23/21 16:52 Freq: NEEDED Status: Active Protocol: Document 12/25/21 10:22 [facility] (Rec: 12/25/21 10:34 [facility] [id number]) Orientation Orientation/Cognition Level of Alertness Alert Orientation Name,Place,Situation Language Function Ability No Deficits Noted Safety Awareness Decreased Safety Awareness Memory Description No Deficits Noted Gross Range of Motion Lower Extremity ROM Assessment Left Impaired Impairments left knee flexion 75 deg Coordination Assessment Gross Coordination Gross Coordination WNL Sensation Assessment Sensation Gross Sensation WNL Muscle Tone Muscle Tone WNL Yes M6 PT-IP Treatment Start: 12/23/21 16:52 Freq: NEEDED Status: Active Protocol: Document 12/25/21 16:06 [facility] (Rec: 12/25/21 16:12 [facility] [id number]) Physical Therapy Treatment Exercises Exercises Ankle Pumps,Quad Sets,Heel Slides M7 PT-IP Assessment and Plan Start: 12/23/21 16:52 Freq: NEEDED Status: Active Protocol: Document 12/25/21 16:06 [facility] (Rec: 12/25/21 16:12 [facility] [id number]) PT Summary Assessment and Plan Potential Rehabilitation Potential Good Summary Impairments Pain,ROM,Strength,Balance, Coordination,Sensation,Tone, Cognition,Bed Mobility, Transfers,Gait,Activity Tolerance Progress Towards Goals Slow Progress due to Pain Assessment Summary Pt in more pain this afternoon as compared to AM. She had gotten up to use the bathroom 15 min prior to PT arriving. Pt did not want to work on stairs again this afternoon. She had been able to do 3 stairs up/down in AM but we wanted to try with her SPC as she does not have a rail quite yet. Pt has 5 sets of stairs to ascend to get into her house. Her is working today on getting a rail installed. I am not sure if that is fully installed yet. Pt would benefit from another session of PT in the AM prior to DC working with her SPC on the steps prior to DC Goals Bed Mobility Goal Independent Transfer Goal Independent,Front Wheeled Walker Gait Goal Independent,Front Wheel Walker Gait Distance 150 Other Goals up/down 5 steps SPC/DIRECTOR TRANSLATION min A Days to Meet Goals 5 Frequency of Treatment Frequency Of Treatment Twice a Day Treatment Plan Physical Therapy Treatment Plan Bed Mobility Training,Transfer Training,Gait Training, Therapeutic Exercise,Balance Retraining,Post Op Education, Discharge Planning,Hot or Cold Pack,Neuromuscular Re-ed, Coordination Retraining,Manual Therapy Weight Bearing Status Weight Bearing Status Weight Bear as Tolerated Allowed Weight Bearing Amount (enter % LLE WBAT or #) (%) Recommendations To Nursing Amount of Assist Needed 1 Person Assist Discharge Recommendations PT Discharge Recommendations Home with 23/10 Assist Available,Home Health, Outpatient PT Transportation Needs at Discharge Private Vehicle
[2021-12-25 20:10] VITALS: BP 159/72; PULSE 105; RESP 19; TEMP 36.8; O2SAT 98
[2021-12-25] MEDS: WARFARIN 5 MG TABLET PO (20:31)
[2021-12-25] MEDS: HYDROCODONE/ACET 5/325 TABLET 2 TAB PO (20:32)
[2021-12-25] MEDS: SODIUM CHLORIDE 0.9% FLUSH 10 ML IV (20:32)
--- NOTE | 2021-12-25 21:47 | PC.NURSE ---
Patient is alert and oriented. Breath sounds CTA with RA sat of 98%. HRR but tachy at 105 bpm and has elevated BP of 159/72 and has been trending high. Denies nausea. BT present and is passing flatus. Voiding without dysuria but states she has chronic urgency with sometimes urge incontinence. Is able to move herself in bed. Up to bathroom with walker and 1 assist. NNAMDI dressing to left knee intact and functioning; small spots of sanguinous drainage noted. Left knee dressing is covered with micah wrap. Complained of 4/10 dull left knee pain earlier and was medicated with Vicodin and is currently asleep. CMS is intact except patient is unable to lift left leg off bed by more than a couple inches. Wearing bilateral calf SCD's. Fall risk score is high and bed alarm is activated.
[2021-12-26] MEDS: hydrOXYzine pamoate 25 MG CAPSULE PO (00:08)
[2021-12-26] MEDS: HYDROMORPHONE 2 MG TABLET PO (00:08)
[2021-12-26 00:33] VITALS: BP 159/77; PULSE 106; RESP 21; TEMP 36.9; O2SAT 96
[2021-12-26] MEDS: HYDROCODONE/ACET 5/325 TABLET 2 TAB PO ×3 (03:30→11:42)
[2021-12-26] MEDS: DOCUSATE 100 MG CAPSULE PO (08:02)
[2021-12-26] MEDS: ENOXAPARIN 100 MG/ML SYRINGE 95 MG SUBCUT (08:03)
[2021-12-26 09:00] VITALS: BP 142/78; PULSE 111; RESP 18; TEMP 36.6; O2SAT 96
[2021-12-26] MEDS: ACETAMINOPHEN 325 MG TABLET 650 MG PO (10:39)
[2021-12-26] MEDS: SODIUM CHLORIDE 0.9% FLUSH 10 ML IV (10:40)
--- NOTE | 2021-12-26 10:48 | PC.NURSE ---
Addendum entered by Josee Tierney R.N. 12/26/21 10:57: Patients velasquez dressing is cdi with small motor flashing green. She is resting and visiting with her . Original Note: Assess- Patient is alert and oriented x4, up to commode with one person assist and walker. Given 2 vicodin at 0800 and helpful for about two hours. Just gave patient another 325mg tylenol. She is able to have more vicodin at 1130, and patient plans on doing stairs then will be discharged home.
--- NOTE | 2021-12-26 11:46 | PT.IPTN ---
Current Diagnoses Bilateral primary osteoarthritis of knee (12/24/21) Unilateral primary osteoarthritis, left knee (12/24/21) Other specified joint disorders, unspecified knee (12/24/21) Surgery Performed Operation Date: 12/23/21 07:45 Actual Procedures p Total Knee Arthroplasty(Left) - Monica Hernandez MD Physical Therapy Treatment Note M2 PT-IP Current Condition Start: 12/23/21 16:52 Freq: NEEDED Status: Discharge Protocol: Document 12/26/21 11:17 SP (Rec: 12/26/21 16:04 SP [id number]) Physical Therapy Current Condition Current Condition Evaluation Date 12/23/21 Treatment Diagnosis s/p L TKA; difficulty in walking Onset Date 12/23/21 M3 PT-IP Subjective Start: 12/23/21 16:52 Freq: NEEDED Status: Discharge Protocol: Document 12/26/21 11:17 SP (Rec: 12/26/21 16:04 SP [id number]) Subjective Physical Therapy Visit Type Type Treatment Note Visit Start Time 11:17 Visit Stop Time 11:46 Total Visit Minutes 29 Notes BP taken post mobility due to pale complexion seated in chair: BP 138/58 HR 104 SaO2 96% declines dizzy or lightheadedness throughout tx. present and completed CGT with pt CG- Min A as needed throughout tx via gait belt. Number of GRAPHIC SPECIALIST Visits 1 Physical Therapy Visit Comments Patient Comments Pt agreeable to therapy 2nd attempt post med pain assist of Tylenol. Pt reported little tingling L lateral foot/toes when donning shoes. Patient Goals return home with spouse to assist her. Therapy Pain Assessment Location Left Knee Intensity 7 Scale Used rest, 8/10 with mobility Description With Movement Pain Behaviors Facial Grimacing,Wincing Pain Management Techniques Apply Cold,Distraction, Elevation,Modification of Treatment,Re-positioning, Timing of Activity with Medications M4 PT-IP Mobility and Gait Start: 12/23/21 16:52 Freq: NEEDED Status: Discharge Protocol: Document 12/26/21 11:17 SP (Rec: 12/26/21 16:04 SP [id number]) PT-Bed Mobility Assessment Supine to Sit Supine to Sit Standby Assistance Scooting Scooting to Edge of Bed Standby Assistance PT-Transfer Assessment Sit to and From Stand Sit to and from Stand Standby Assistance,Contact Guard Assistance,1 Person Assistance,Use of Upper Extremities Equipment Transfer Assistive Device Gait Belt,Front Wheeled Walker Orthotic/Prosthetic Devices or Brace: No Transfers Transfer Destination Chair,Wheelchair Transfer Technique ambulated using FWW Transfer Ability Level of Assist Contact Guard Assistance,Use of Upper Extremities Comments Mobility Comments Pt completed supine>sit UEs supporting LLE to EOB. Sit> stand CG- SBA w/ FWW, cued full stand and quad fac, L knee flexion and heel toe phases during gait into hallway w/ w/c follow approx 40 ft. Wheeled to stairs. STS from w/c 3 step to stairs, completed 2 sets 3 stairs R HR and SPC in LUE CGA-Min via and ed to stabilize SPC and reminders to pt keep stair ahead for support. Good patterning RLE lead ascend/ LLE descend step to patterning . Pt returned to w/c when done , + SOB found mask restricting challenge to breath. Ed slow controlled breath. Wheeled pt back to room, 5 ft to chair w/ FWW CGA improved LLE foot clearance and stride, CGA stand>sit in chair, cued reach back for chair arm for slow descent sit. GRAPHIC SPECIALIST/ pt discussed importance of gait for strength/ circulation and post op LE ex for ROM and decrease risk for DVT. Pt had all needs in reach and notified nursing pt eager to return home when medically cleared to assist. Outpt therapy scheduled for Sun. Gait Assessment Gait Gait Assistance Required: Standby Assistance,Contact Guard Assist Distance (Feet) 40 Able to Maintain Weight Bearing Status Yes During Gait Assistive Devices Assistive Device Gait Belt,Front Wheeled Walker Orthotic/Prosthetic Devices or Brace: No Gait Deviations General Gait Pattern Antalgic,Decreased Stride Length,Decreased Feet Clearance,Step-to Gait Factors Limiting Gait Function Factors Limiting Gait Function Decreased Activity Tolerance, Decreased Strength,Limited Range of Motion,Pain,Poor Safety Awareness Comments Gait Comments see mobility comments Stair Climbing Assessment Evaluation Level of Assist On Stairs Standby Assistance,Contact Guard Assistance,1 Person Assistance Devices Stair Climbing Assistive Devices Straight Cane,Right Railing Technique/Endurance Stair Climbing Direction Ascend and Descend Stair Climbing Technique Step to Step Number of Steps Climbed 3 Stair Climbing Set # Repetitions (reps) 2 Comments Stair Climbing Comments see mobility comments PT-Balance Assessment Sitting Balance and Reactions Static Sitting Balance Ability Normal Dynamic Sitting Balance Ability Good Standing Balance and Reactions Static Standing Balance Ability Good Dynamic Standing Balance Ability Good Device Used FWW M5 PT-IP Objective Assessments Start: 12/23/21 16:52 Freq: NEEDED Status: Discharge Protocol: Document 12/25/21 10:22 [facility] (Rec: 12/25/21 10:34 AM[facility] [id number]) Orientation Orientation/Cognition Level of Alertness Alert Orientation Name,Place,Situation Language Function Ability No Deficits Noted Safety Awareness Decreased Safety Awareness Memory Description No Deficits Noted Gross Range of Motion Lower Extremity ROM Assessment Left Impaired Impairments left knee flexion 75 deg Coordination Assessment Gross Coordination Gross Coordination WNL Sensation Assessment Sensation Gross Sensation WNL Muscle Tone Muscle Tone WNL Yes M6 PT-IP Treatment Start: 12/23/21 16:52 Freq: NEEDED Status: Discharge Protocol: Document 12/26/21 11:17 SP (Rec: 12/26/21 16:04 SP [id number]) Physical Therapy Treatment Exercises Exercises Ankle Pumps,Quad Sets,Heel Slides,Seated Knee Flexion/ Extension Knee ROM Measurement approx 70 deg seated AROM flexion Other Treatments Other Treatment Performed see mobility comments M7 PT-IP Assessment and Plan Start: 12/23/21 16:52 Freq: NEEDED Status: Discharge Protocol: Document 12/26/21 11:17 SP (Rec: 12/26/21 16:04 SP [id number]) PT Summary Assessment and Plan Potential Rehabilitation Potential Good Status of Condition at Evaluation Evolving Summary Impairments Pain,ROM,Strength,Balance, Coordination,Sensation,Tone, Bed Mobility,Transfers,Gait, Activity Tolerance Progress Towards Goals Slow Progress due to Pain Assessment Summary Pt in more pain this AM, 45 more min before pain med but premed Tylenol when returned. installed L HR , required SBA BM, CG- SBA for standing w/ FWW support for safety. CG- Min A for stair mgt R HR and SPC in LUE with . Pt is ok return home with assist her when medically cleared, outpt therapy scheduled on Sun. Goals Bed Mobility Goal Independent Transfer Goal Independent,Front Wheeled Walker Gait Goal Independent,Front Wheel Walker Gait Distance 150 Other Goals up/down 5 steps SPC/STEM ROLLER OR CRUSHER OPERATOR min A Days to Meet Goals 5 Frequency of Treatment Frequency Of Treatment Twice a Day Treatment Plan Physical Therapy Treatment Plan Bed Mobility Training,Transfer Training,Gait Training, Therapeutic Exercise,Balance Retraining,Post Op Education, Discharge Planning,Hot or Cold Pack,Neuromuscular Re-ed, Coordination Retraining,Manual Therapy Other Recommendations and Next Treatment LE post op ex, ROM, gait w/ Focus FWW further distance. Weight Bearing Status Weight Bearing Status Weight Bear as Tolerated Allowed Weight Bearing Amount (enter % LLE WBAT or #) (%) Recommendations To Nursing Amount of Assist Needed Standby Assistance,1 Person Assist Discharge Recommendations PT Discharge Recommendations Home with Assistance, Outpatient PT Transportation Needs at Discharge Private Vehicle
== END 2021-12-26 12:32 | disposition home or self-care (01) ==
LOC: OR 12-26 09:46 → AC 12-26 09:46
PROVIDERS: Anesthesiology; Admitting Provider Orthopaedic Surgery Foot and Ankle Surgery; PCP Family Medicine; Referring Provider Family Medicine; Visit Provider Orthopaedic Surgery Foot and Ankle Surgery
PROC: 0SRD0JZ Replacement of Left Knee Joint with Synthetic Substitute, Open Approach (ICD-10-PCS; CPT 27447; principal; 2021-12-23 07:45)
DX: M17.12 Unilateral primary osteoarthritis, left knee (principal); Z79.01 Long term (current) use of anticoagulants; Z86.718 Personal history of other venous thrombosis and embolism; M76.892 Other specified enthesopathies of left lower limb, excluding foot
CPT/HCPCS: 27447; 36415; 64450; 73560; 85014; 85018; 85610; 97110; 97116; 97162; 97530; C1776; G0378; C1713; C9290; J0171; J0690; J1100; J1650; J2250; J2270; J2405; J2704; J3010

== ENCOUNTER 2022-05-27 09:31 | Observation (INO) | payer OTHER, SELFPAY ==
[2021-12-23 12:56] VITALS: BMI 34.7
[2022-05-16 08:47] VITALS: BMI 30.8
[2022-05-26] VITALS (15 sets, daily range): BP systolic 137–176; BP diastolic 66–98; PULSE 63–99; RESP 11–20; TEMP 36.3–36.8; O2SAT 92–100; BMI 31.3
--- NOTE | 2022-05-26 06:00 | DI.RAD.S_ITS ---
PROCEDURE: XR KNEE RT 1TO2V INDICATIONS: prosthesis placement TECHNIQUE: 2 view(s) of the knee acquired. COMPARISON: [facility], CR, XR KNEE LT 1TO2V, 12/23/2021, 11:07. FINDINGS: Bones: Patient is status post knee joint arthroplasty. Hardware components are in expected positions. Visualized bony structures are intact. Soft tissues: Overlying postoperative changes are noted. IMPRESSION: Total right knee arthroplasty in good position Dictated by: Rufino Domínguez M.D. on 05/26/2022 at 15:59 Approved by: Rufino Domínguez M.D. on 05/26/2022 at 16:02
[2022-05-26] MEDS: ACETAMINOPHEN 325 MG TABLET 975 MG PO (07:15)
[2022-05-26] MEDS: PREGABALIN 75 MG CAPSULE PO (07:16)
[2022-05-26] MEDS: CELECOXIB 200 MG CAPSULE PO (07:16)
--- NOTE | 2022-05-26 07:17 | PM.PREOP ---
Pre-operative Note Interval Note History & Physical reviewed/Exam performed by Physician: Yes Changes to H&P: No
[2022-05-26] MEDS: CEFAZOLIN 2 GM/100 ML PREMIX 100 ML IV ×2 (07:59→16:00)
[2022-05-26 08:05] LABS: COVID19 -Nasal RAPID Negative (Negative)
[2022-05-26] MEDS: TRANEXAMIC ACID 1,000 MG VIAL 1000 MG INJ ×2 (08:06→10:17)
--- NOTE | 2022-05-26 08:27 | SUR.OPER ---
Supine on padded OR bed. Pillow under head, arms secured on padded armboards <90 degree abduction. Safety belt across torso. Non-operative leg secured with tape over blanket over lower leg. Operative leg secured in DeMayo/Ray/Nathe positioner. Foam padded brace at thigh of operative leg.
[2022-05-26] MEDS: BUPIVACAINE LIPOSOME 266 MG/20 ML VIAL INJ (08:33)
[2022-05-26] MEDS: BUPIVACAINE 0.5% W/ EPI (PF) 30 ML VIAL INJ (08:35)
[2022-05-26] MEDS: LACTATED RINGERS 1,000 ML 42 ML IV (09:26)
--- NOTE | 2022-05-26 11:15 | P.OP_ITS ---
Operative Date/Time/Diagnoses Date of procedure: 05/26/22 Time of procedure: 08:00 Pre-op diagnosis: Knee arthritis M17.11 BMI 31 Post-op diagnosis: same Procedure & Clinicians Procedure: Total knee arthroplasty right CPT code 77102 Same procedure as scheduled: Yes Indications: Patient is a 72-year-old female with end-stage arthritis of the right knee with [id number] arthritis. She is failed conservative treatment including bracing, anti-inflammatories, physical therapy, injection medications. She is been indicated for total knee arthroplasty. The risks and benefits of the procedure have been discussed with the patient and given the opportunity to ask questions. The risks of surgery include but are not limited to infection, fracture, persistence of pain, damage to nerves and blood vessels, generalized dissatisfaction with the procedure,, DVT, PE, cardiopulmonary complications and . The patient expressed a thorough understanding of the risks and benefits of surgery and has elected to proceed. Consent was signed in the office. During the operation, the services of a physician surgical garment inspector were medically indicated and necessary to provide the exposure of the operative site for the surgical procedure and to maintain the limb in a proper position to carry out the operation safely and efficiently. Without a qualified specimen preparation assistant being present this would extended the operative procedure and made the procedure technically more difficult to perform. Surgeon: Monica Hernandez Return Agent Airport: Brandi Roe Anesthesia Type: General and Spinal Operative Notes Findings: End-stage [id number] grade 4 cartilage loss medial patellofemoral and lateral compartment, tibial and femoral spurs Closure Type: primary Specimen(s): none sent Prosthetic devices, grafts, tissues, transplants, or devices: Dukes and nephew mike CS 2--femur right size 6 Tibia right size 5 Poly 9 mm Patella 35 x 7.5 Estimated Blood Loss (mL): 50 Blood products transfused: none Tourniquet time (min): 106 Procedure in detail: Patient was seen in the preoperative area where the patient and site of surgery were identified in the operative knee was marked informed consent confirmed. This was the right knee. Patient received the appropriate preoperative antibiotics this was 2 g of Ancef. And other preoperative medications and was taken to the operating room placed on operating table in the supine position. Spinal anesthetic were administered. The operative extremity was then prepped and draped in the standard sterile fashion with a nonsterile tourniquet high on the thigh. Patient was placed on the green foam bolsters. A lateral post was placed at the level of the proximal thigh /trochanter area as a lateral post. Formal time-out procedure was performed confirming the patient's side and site of surgery and administration of appropriate preoperative antibiotics and implants were in the room accounted for. All were in agreement. Patient received a preoperative dose of tranexamic acid and then a 2nd dose at tourniquet release Patient was prepped and draped in the standard sterile fashion and the foot was placed into the [facility] leg montes. This was taken into high flexion and the incision was marked out over the anterior knee to the level of the medial tubercle tubercle. The Esmarch was then used for exsanguination and the tourniquet was inflated to 250 mmHg. Was made through the skin and subcutaneous tissue in high flexion this was then brought down into 30? of flexion for the medial parapatellar arthrotomy. A marker pen was used to mary the arthrotomy site for later repair. Joint fluid was evacuated. The anterior osteophytes and soft tissues were removed. Routine medial release was initially made along the medial proximal tibia with Bovie. The patella was on quite a bit of tension on attempted eversion so the quad incision was lengthened to relax it and then the patella was 1st cut using the saw sized and prepped and then subluxed throughout the case and protected. The leg was then taken into extension and the patella was everted and the patella was cut to accommodate the patellar button. This was sized to a 35 mm button for a 9 mm thickness to recreate the original dimensions of the patella. This was trialed for patellar stability and found to be tight laterally so a lateral release was completed which improved patellar tracking additionally decision was made to use a final 7.5 patellar poly component to help with the tracking further. Poly was removed and the protector replaced and the patella was subluxed and the knee was taken back up into flexion and attention was returned to the femur. Then the rotational landmarks of Whitesides line and the trans epicondylar axis were marked on the femur with electrocautery. Then the intramedullary guide for the femur was created. The distal femoral cut was made in 6? of valgus using the intramedullary guide with the cut setting on 0+ as the patient did not have a preoperative flexion contracture. The ACL and PCL released. The proximal tibia was then cut using the intramedullary guide, taking 9 mm off the less involved side this was the lateral plateau. The Chalo wing was used to check the slope through the guide. Second pass was made through the tibial cut guide with the saw after the cut tibia was removed plane down about 1 more mm and further smooth then the resection surface. In extension remainders of the medial and lateral menisci were removed. The extension flexion gaps were then checked using both the flexion extension blocks. And was selected for a 9 mm poly femur was then sized and the rotation set using the posterior condyle referencing 3? of external rotation. This measured a size 6. Cut block was then placed and the anterior, posterior and chamfer cuts were then made. The posterior osteophytes and soft tissues were then removed. Then in extension the posterior capsule was injected with a mixture of 40 mL of 0.25% Marcaine and 20 mL of Exparel care to avoid excessive injection posterior laterally. The remainder of this was saved for the capsule and subcutaneous tissue and placed during cement curing. Attention was then returned to the tibia and this was prepared with the rotation set by the extramedullary guide. Lined up with the tibial crest and the 2nd toe. The tibial trial was then pinned in place and the trial femoral components were placed. Then the intercondylar notch was cut through the femoral trial to create the box this was done with the distal than the proximal drill and then the box cut distally and then proximally. Next the insert was placed and the trial poly placed. This was stable in flexion and extension and there was a 0- 135 degree range of motion. The tibia was then finished with the drill and flange cuts and then this was removed. All trials were removed. The wound and bone was irrigated with pulsatile lavage. This was then dried with a sponge. The components were verified and opened and the cement was mixed. Cement was applied to the components and then to the bone then the tibia was cemented in place 1st followed by the femur then the patella. Excess cement was removed. With care looking around the back of the knee. Remainder of the injection was injected around the capsule. trial poly was placed back in the leg was placed into extension for the patellar cementing. After this was cured approximately 15 minutes later and the dilute Betadine solution was placed for at least 3 minutes in the wound this was then irrigated out and the final poly was placed. This was a 9 mm poly. The tourniquet was released hemostasis was achieved. Final g of tranexamic acid was given IV at the time of tourniquet release. The capsule was closed with 1. Ethibond suture. Subcutaneous layer was closed with 3-0 Vicryl suture. Skin was closed with a running V lock suture Stratafix Monocryl type suture and Dermabond. An ian dressing was placed given this patient's requirements of strong anticoagulation. An Favio wrap was applied. Anesthetic was terminated the patient was woken from anesthesia and taken to recovery room in good condition. There no immediate complications from this procedure. The patient will be maintained on a standard total knee replacement protocol with weight-bearing as tolerated. Complications: none Post-operative Condition: stable Disposition: PACU Plan for aftercare: Patient will be weightbear as tolerated. Ian dressing will stay in place. The battery for this will work for 7 days and then at that point the battery and hose can be cut off but the dressing will remain in place until follow-up in 2 weeks [facility]. She will restart her normal warfarin dose 5 mg tonight then she will start the Lovenox bridge on postop day 1 in the morning where she will take 90 mg of Lovenox in the morning and in the evening as well as the 5 mg warfarin dose in the evening. On postoperative day 2 she will do the same with Lovenox in the morning and evening and warfarin in the evening. On postoperative day 3 the patient will have Lovenox 90 mg in the morning and the warfarin dose in the evening. Note there is no evening Lovenox dose on postop day 3. On postop day 4 the patient will get her INR checked her anticoagulation clinic intake her normal worsened dose in the evening unless otherwise adjusted by the anticoagulation clinic.
[2022-05-26] MEDS: fentaNYL 100 MCG/2 ML INJ IV (11:18)
[2022-05-26] MEDS: ONDANSETRON 4 MG/2 ML INJ IV (11:18)
[2022-05-26] MEDS: OXYCODONE IR 5 MG TABLET PO ×2 (11:18→11:53)
--- NOTE | 2022-05-26 11:27 | SUR.PHASEI ---
No inpatient rooms available at this time. Patient resting with eyes closed with no distress noted. VSS.
[2022-05-26] MEDS: HYDROMORPHONE 2 MG INJ IV (11:36)
--- NOTE | 2022-05-26 12:17 | SUR.PHASEI ---
Placed into PACU holding at 1200 awaiting room assignment. , Ja, updated on delay.
[2022-05-26] MEDS: hydrOXYzine pamoate 25 MG CAPSULE PO (14:26)
[2022-05-26] MEDS: HYDROCODONE/ACET 5/325 TABLET 2 TAB PO ×2 (14:26→18:47)
[2022-05-26] MEDS: HYDROMORPHONE 0.5 MG INJ 0.2 MG IV ×2 (14:28→20:48)
[2022-05-26] MEDS: LACTATED RINGERS 1,000 ML 100 ML IV (15:05)
[2022-05-26] MEDS: WARFARIN 5 MG TABLET PO (17:03)
--- NOTE | 2022-05-26 17:06 | PT.IIE ---
Current Diagnoses Unilateral primary osteoarthritis, right knee (05/26/22) Surgery Performed Operation Date: 05/26/22 07:45 Actual Procedures p Total Knee Arthroplasty(Right) - Monica Hernandez MD Surgical History (Last Updated 05/16/22 @ 08:54 by Darshana Evans RN) History of bilateral tubal ligation History of orthopedic surgery History of surgery History of total left knee replacement (12/23/21) Hx of repair of right rotator cuff Medical History (Last Reviewed 12/24/21 @ 09:49 by Al Jackman PA-C) DVT (deep venous thrombosis) (~2009) Osteoarthritis Physical Therapy Inpatient Evaluation/Re-Eval M1 PT/OT-IP Prior Functional Status Start: 05/26/22 16:06 Freq: NEEDED Status: Active Protocol: Document 05/26/22 16:49 SAK (Rec: 05/26/22 17:06 [facility] [id number]) Medical Review Prior Functional Status Medical History Reviewed Yes Diet/Fluid Consistency Regular Communication no deficits Mobility and Gait independent, painful right LE Activities of Daily Living and IADL's independent Prior Functional Level (Other details) walked with cane left TKA December 2021 Social History Household Members spouse Living Arrangements House Number of Floors (Floors) 3 or More Floors Number of Stairs To Enter/Railing? 5 stairs to enter, railing 15 steep stairs to bedroom but won't use for awhile Home Environment High Toilet,Tub/Shower Home Equipment Front Wheel Walker,Straight Cane,Tub Transfer Bench,Hand Held Shower Employment Status Retired M2 PT-IP Current Condition Start: 05/26/22 16:06 Freq: NEEDED Status: Active Protocol: Document 05/26/22 16:49 SAK (Rec: 05/26/22 17:06 [facility] [id number]) Physical Therapy Current Condition Current Condition Evaluation Date 05/26/22 Treatment Diagnosis s/p right TKA Onset Date 05/26/22 M3 PT-IP Subjective Start: 05/26/22 16:06 Freq: NEEDED Status: Active Protocol: Document 05/26/22 16:49 SAK (Rec: 05/26/22 17:06 [facility] [id number]) Subjective Physical Therapy Visit Type Type Initial Evaluation Visit Start Time 14:00 Visit Stop Time 14:35 Total Visit Minutes 35 Number of AGING ROOM HAND Visits 0 Physical Therapy Visit Comments Patient Comments Patient reports pain 4-6/10, has had pain meds. Willing to try getting up Patient Goals discharge home Therapy Pain Assessment Pain When Pain Assessed During Mobility Pain Present Pain Present Pain Reported Location right knee Intensity 5 Scale Used Numeric (0 - 10) Description Aching,Acute,Burning,Sharp Pain Behaviors Facial Grimacing,Guarding, Wincing Pain Management Techniques Apply Cold,Modification of Treatment,Re-positioning, Timing of Activity with Medications M4 PT-IP Mobility and Gait Start: 05/26/22 16:06 Freq: NEEDED Status: Active Protocol: Document 05/26/22 16:49 SAK (Rec: 05/26/22 17:06 [facility] [id number]) PT-Bed Mobility Assessment Supine to Sit Supine to Sit Minimal Assistance Sit to Supine Sit to Supine Minimal Assistance Scooting Scooting to Edge of Bed Minimal Assistance Scooting Up and Down in Bed Minimal Assistance PT-Transfer Assessment Sit to and From Stand Sit to and from Stand Moderate Assistance Equipment Transfer Assistive Device Gait Belt,Front Wheeled Walker Transfers Transfer Destination Bedside Commode Transfer Technique Stand Step Pivot Transfer Ability Level of Assist Moderate Assistance Comments Mobility Comments mod assist for right LE, and safety in standing. Cues for weight-bearing through hands and left LE, small steps DATA PROCESSING CONSULTANT present to assist with management of lines Gait Assessment Gait Gait Assistance Required: Minimum Assistance Distance (Feet) 3 Able to Maintain Weight Bearing Status Yes During Gait Assistive Devices Assistive Device Gait Belt,Front Wheeled Walker Gait Deviations General Gait Pattern Antalgic,Decreased Stride Length,Decreased Feet Clearance,Step-to Gait Factors Limiting Gait Function Factors Limiting Gait Function Decreased Strength,Pain Comments Gait Comments Short shuffling steps x 6 to bedside commode using FWW with min assist and cues for safety M5 PT-IP Objective Assessments Start: 05/26/22 16:06 Freq: NEEDED Status: Active Protocol: Document 05/26/22 16:49 [facility] (Rec: 05/26/22 17:06 [facility] [id number]) Orientation Orientation/Cognition Level of Alertness Alert Orientation Name,Place,Situation Language Function Ability No Deficits Noted Safety Awareness Understands Safety Issues Memory Description No Deficits Noted Gross Range of Motion Upper Extremity ROM Assessment Within Functional Limits Lower Extremity ROM Assessment Right Impaired Impairments left WFL Right knee PROM 10-45 Strength Upper Extremity Strength Assessment Within Functional Limits Lower Extremity Strength Assessment Right Impaired Comments Strength Comments left WNL Sensation Assessment Sensation Gross Sensation Right LE Impaired Sensation Description Numbness M6 PT-IP Treatment Start: 05/26/22 16:06 Freq: NEEDED Status: Active Protocol: Document 05/26/22 16:49 [facility] (Rec: 05/26/22 17:06 [facility] [id number]) Physical Therapy Treatment Exercises Exercises Ankle Pumps,Quad Sets Knee ROM Measurement 10-45 Education Education Provided Precautions,Weight Bearing Status,Safety M7 PT-IP Assessment and Plan Start: 05/26/22 16:06 Freq: NEEDED Status: Active Protocol: Document 05/26/22 16:49 [facility] (Rec: 05/26/22 17:06 [facility] [id number]) PT Summary Assessment and Plan Potential Rehabilitation Potential Good Status of Condition at Evaluation Evolving Summary Impairments Pain,ROM,Strength,Bed Mobility ,Transfers,Gait,Activity Tolerance Assessment Summary Patient s/p right TKA 05/26/22, willing to sit at EOB, transfer to [facility] with mod assist via stand step pivot transfer plus assist of DATA PROCESSING CONSULTANT for lines. Pain level 4-6/10, able to do quad set, good ankle pump right. Has typical post-op impairments in mobility, knee ROM and strength. She is well set-up at home for post-op having had her left TKA done back in December. Her is able to assist in the home and she has outpatient PT scheduled to start in 1 week. She has 5 stairs to enter her home with 1 railing. She is hoping to be discharged home tomorrow. Goals Bed Mobility Goal Standby Assistance Transfer Goal Contact Guard Assistance Gait Goal Contact Guard Assistance Gait Distance 75 Days to Meet Goals 4 Frequency of Treatment Frequency Of Treatment Twice a Day Treatment Plan Physical Therapy Treatment Plan Bed Mobility Training,Transfer Training,Gait Training, Therapeutic Exercise Weight Bearing Status Weight Bearing Status Weight Bear as Tolerated Recommendations To Nursing Amount of Assist Needed 2 Person Assist Discharge Recommendations PT Discharge Recommendations Home with Assistance Transportation Needs at Discharge Private Vehicle
[2022-05-26] MEDS: DOCUSATE 100 MG CAPSULE PO (20:48)
[2022-05-27] VITALS: BP 154/65; PULSE 72; RESP 19; TEMP 36.1; O2SAT 97
[2022-05-27] MEDS: HYDROCODONE/ACET 5/325 TABLET 2 TAB PO ×4 (00:04→20:34)
[2022-05-27] MEDS: CEFAZOLIN 2 GM/100 ML PREMIX 100 ML IV (00:04)
[2022-05-27] MEDS: LACTATED RINGERS 1,000 ML 100 ML IV (02:38)
[2022-05-27 04:00] VITALS: BP 150/64; PULSE 78; RESP 19; TEMP 36.2; O2SAT 98
[2022-05-27 08:11] VITALS: BP 130/66; PULSE 80; RESP 16; TEMP 36.6; O2SAT 99
[2022-05-27] MEDS: ENOXAPARIN 100 MG/ML SYRINGE 90 MG SUBCUT ×2 (08:39→20:01)
[2022-05-27] MEDS: DOCUSATE 100 MG CAPSULE PO ×2 (08:39→20:01)
--- NOTE | 2022-05-27 09:16 | P.DS_ITS ---
History of Present Illness History of Present Illness Date Patient Seen: 05/27/22 Time Patient Seen: 09:16 Chief complaint: Right knee pain Narrative: Patient has right knee pain has been moderate. Denies fever or chills. No nausea vomiting. She has been up able to use the restroom. She is not yet received physical therapy. Patient has her home to assist her. Patient has specific instructions on her Lovenox dosing and has pain meds at home. Discharge Providers Provider Discharge Date: 05/27/22 Primary care physician: Jl Catalan MD Consults: 05/26/22 06:00 Consult to Anesthesiology Routine Comment: Consulting Provider: Anesthesiologist Reason for consultation: Regional block for post operative pain control 05/26/22 13:34 Consult to Discharge Planning Routine Comment: Consult to Physical Therapy Evaluate & Treat Comment: Physician Instructions: postop TKA protocol Discharge provider: Al Jackman PA-C Summary Hospital Course Discharge Diagnosis: Knee arthritis M17.11 Hospital Course: Total knee arthroplasty right CPT code 06241 Same procedure as scheduled: Yes Indications: Patient is a 72-year-old female with end-stage arthritis of the right knee with yity-nq-vuxg arthritis.? She is failed conservative treatment including bracing, anti-inflammatories, physical therapy, injection medications.? She is been indicated for total knee arthroplasty.? The risks and benefits of the procedure have been discussed with the patient and given the opportunity to ask questions.? The risks of surgery include but are not limited to infection, fracture, persistence of pain, damage to nerves and blood vessels, generalized dissatisfaction with the procedure,, DVT, PE, cardiopulmonary complications and .? The patient expressed a thorough understanding of the risks and benefits of surgery and has elected to proceed.? Consent was signed in the office. During the operation, the services of a physician chemical laboratory assistant were medically indicated and necessary to provide the exposure of the operative site for the surgical procedure and to maintain the limb in a proper position to carry out the operation safely and efficiently.? Without a qualified paperhanger assistant being present this would extended the operative procedure and made the procedure technically more difficult to perform. Surgeon: Monica Hernandez Hogshead Roller: Brandi Roe Anesthesia Type: General and Spinal Operative Notes Findings: End-stage [id number] grade 4 cartilage loss medial patellofemoral and lateral compartment, tibial and femoral spurs Closure Type: primary Specimen(s): none sent Prosthetic devices, grafts, tissues, transplants, or devices: Dukes and nephailyn mckeon bi CS 2--femur right size 6 Tibia right size 5 Poly 9 mm Patella 35 x 7.5 Estimated Blood Loss (mL): 50 Blood products transfused: none Tourniquet time (min): 106 Patient admitted to the hospital for right total knee arthroplasty. Patient consented to the same. Patient underwent right total knee arthroplasty on May 26, 2022. Patient back in her room recovering well as in stable condition. Patient will mobilize with physical therapy. Patient will be weightbear as tolerated.? Velasquez dressing will stay in place.? The battery for this will work for 7 days and then at that point the battery and hose can be cut off but the dressing will remain in place until follow-up in 2 weeks in Orthopedic Clinic.? She will restart her normal warfarin dose 5 mg tonight then she will start the Lovenox bridge on postop day 1 in the morning where she will take 90 mg of Lovenox in the morning and in the evening as well as the 5 mg warfarin dose in the evening.? On postoperative day 2 she will do the same with Lovenox in the morning and evening and warfarin in the evening.? On postoperative day 3 the patient will have Lovenox 90 mg in the morning and the warfarin dose in the evening.? Note there is no evening Lovenox dose on postop day 3.? On postop day 4 the patient will get her INR checked her anticoagulation clinic intake her normal worsened dose in the evening unless otherwise adjusted by the anticoagulation clinic. Discharge home today after physical therapy if safe for home environment. Exam Vital Signs (past 8 hours): - 05/27/22 04:00 05/27/22 08:11 Temperature 97.2 F L 98 F Pulse Rate 78 80 Respiratory Rate 19 16 Blood Pressure 150/64 H 130/66 Pulse Oximetry 98 99 Oxygen Flow Rate 0 Oxygen Delivery Method Room Air Oxygen Flow Rate 0 Narrative Exam Narrative: Pleasant 72-year-old female resting comfortably in bed in no apparent distress. Velasquez dressing is on and functioning. Dressing is clean, dry and intact. Motor functions intact distal right lower extremity. Sensation grossly intact to light touch distal right lower extremity. Const General: cooperative and comfortable Orientation: alert Resp Effort & Inspection: normal respiratory effort and able to speak in complete sentences [facility] Medical History DVT (deep venous thrombosis) (~2009) Osteoarthritis Surgical History History of bilateral tubal ligation History of orthopedic surgery History of surgery History of total left knee replacement (12/23/21) Hx of repair of right rotator cuff Social History household members: spouse Smoking Status: Former smoker alcohol intake: current Discharge Assessment & Plan Assessment and Plan Assessment: Patient progressing as expected status post right total knee arthroplasty. Plan of Treatment: Patient will be weightbear as tolerated.? Velasquez dressing will stay in place.? The battery for this will work for 7 days and then at that point the battery and hose can be cut off but the dressing will remain in place until follow-up in 2 weeks in Orthopedic Clinic.? She will restart her normal warfarin dose 5 mg ton ight then she will start the Lovenox bridge on postop day 1 in the morning where she will take 90 mg of Lovenox in the morning and in the evening as well as the 5 mg warfarin dose in the evening.? On postoperative day 2 she will do the same with Lovenox in the morning and evening and warfarin in the evening.? On postoperative day 3 the patient will have Lovenox 90 mg in the morning and the warfarin dose in the evening.? Note there is no evening Lovenox dose on postop day 3.? On postop day 4 the patient will get her INR checked her anticoagulation clinic intake her normal worsened dose in the evening unless otherwise adjusted by the anticoagulation clinic. Discharge home today after physical therapy if safe for home environment. Discharge Plan Discharge Plan Patient Disposition: Home Discharge orders & Medications Discharge Orders: Discharge (Order); Ordered 05/27/22 Ordered By: Al Jackman Prescriptions: New hydrocodone-acetaminophen 5-325 mg tablet 1 tab PO Q4H PRN (Reason: pain) Qty: 40 0RF Rx Instructions: postop exempt ondansetron 4 mg tablet,disintegrating 4 mg PO Q8H PRN (Reason: nausea and vomiting) Qty: 7 1RF Continued warfarin 5 mg Tablet 5 mg PO DAILY enoxaparin 100 mg/mL syringe 100 mg SUBCUT BID Label Comments: inject 1 SYRINGE subcutaneously every 12 hours as directed by prescriber START 12/18/21 Follow up/Referrals: Monica Hernandez MD [Physician] - (2 week postop appointment as scheduled) Jl Catalan MD [Primary Care Provider] - Diet/Activity/Treatments Diet: Diet as Tolerated Cold/Heat Therapy: Apply ice to knee as needed Other treatments: Dressing: Keep dressing clean and dry Other wound treatment: Postoperative total knee instructions Dressing/Wound care: -may Remove the Favio wrap 48 hours after surgery. -Keep velasquez dressing or Aquacel dressing in place until postoperative follow-up office visit. -you may see some drainage on the bandage, this is ok. If it is leaking or saturated, then the dressing can be changed to clean gauze or a clean surgical dressing from a pharmacy or reinforced with additional gauze and paper tape or dressings over the top. Otherwise, just keep dressing in place until follow up. -if you have been given a Velasquez dressing, this dressing has a VAC in it that works for 7 days then will turn off. At that point, the battery pack and tubing can be cut off but the rest of the dressing should remain in place. -Okay to shower. Keep wound out of direct water stream. No soaking or submerging until all the scabs fall off (approximately 6 weeks). -Please call the office if dressing becomes significantly wet, soiled, or saturated. Activities: -Weight-bearing as tolerated. Use front wheeled walker, and progress to cane when safe. -Continue with home exercises as directed by your physical therapist. -Elevate ?toes above the nose if you have significant swelling in your lower leg. (A wedge pillow is easiest.) -Ice your incision as needed for pain/inflammation/swelling. Protect your skin with a folded pillowcase. -do not put any pillows directly injury Uni you may to the patella under your heal but the goal is to make sure that your knee can fully straighten. Follow-up: -Follow-up with your surgeon or PA in the office in 10-14 days after surgery. -Follow-up with your surgeon 6 weeks postoperatively. Call the office if you have chest pain, shortness of breath, significant swelling that will not resolve with elevating, fever over 101?, significantly worsening pain. [facility]: [phone] You have been discharged with medications. These have already been sent to your pharmacy. Pain include pain medications: Oxycodone or [place]: take 5 mg orally every 4 hours as needed for pain. If your pain is more severe you may take up to 2 every 4 hours for pain. Take the smallest dose necessary. Narcotic medication can make you feel constipated. You can get ftxp-qcp-icvszkf stool softener such as docusate sodium-Colace at a pharmacy to help with this. And acetaminophen (Tylenol) take 500-1000 mg 3 times a day for pain control. You also have a prescription for Zofran (ondansetron) this is a strong anti nausea medication that can be taken up to every 8 hours as needed for nausea You will be restarted on your home dose of Coumadin on the day of surgery at night and then restart the Lovenox bridge on the 1st day after surgery. Then follow the instructions from your anticoagulation clinic. Skin/Wound/Dressing Care Report to your healthcare provider any signs of infection, such as:: chills, fever, night sweats, increased pain, unusual drainage and unusual redness Other wound treatment: Anticoagulation plan. The patient will be on a Lovenox bridge back to her normal warfarin. Postop day 0: Warfarin dose 5 mg in the evening Postop day 1: Lovenox 90 mg b.i.d. (100mg okay if this is was issued by her anticoagulation clinic) and warfarin dose 5 mg in the evening Postop day 2: The same as postoperative day 1 Postop day 3: Lovenox 90 mg once in the MORNING ONLY (again 100 mg is okay if this was issued by her anticoagulation clinic) and warfarin 5 mg in the evening Postop day 4: Check INR (with anticoagulation clinic) and warfarin 5 mg in the evening Visit Report/Discharge Packet Instructions: DI for Knee Replacement Stand Alone Forms: Patient Portal/API, Surgery Discharge Discharge Data Primary Care Provider: Jl Catalan Attending Provider: Monica Hernandez
[2022-05-27 12:46] VITALS: BP 128/62; PULSE 65; RESP 16; TEMP 36.5; O2SAT 97
--- NOTE | 2022-05-27 13:06 | CM.DANOTE ---
DCP: Case received and EMR reviewed, Pt is a 72 yo female who arrived via POV under the care of the orthopedic team. Pt underwent pre-planned Total knee arthroplasty right, she has a pre-op diagnosis of Knee Arthritis. This CM met with pt in her room. She is A+Ox4 and has planned outpatient therapy at [facility] in [place] with set appt dates. She confirms that she lives with her in [place], she drives and that she uses a cane at baseline. PCP: Jl Catalan Insurance: [facility] Advantage Plan: Home with and outpatient therapy today. Hyacinth Syed RN Case Manager Discharge Planning/Care Management Advanced directive, confirm from FAMILY Start: 05/26/22 17:54 Freq: Q24H Status: Active Protocol: Document 05/26/22 17:54 KH (Rec: 05/26/22 17:58 KH [id number]) Advance Directive, confirm on record Time 17:58 Person contacted patient Copy received No CM Discharge Assessment Start: 05/27/22 13:04 Freq: Status: Active Protocol: Document 05/27/22 13:05 JS (Rec: 05/27/22 13:06 JS [id number]) Discharge Planning Assessment Assigned Umbrella Tipper Machine Hyacinth Syed RN Case Manager Advance Directives? Yes Advance Directives on File No History Provided By Patient,Medical Record Has Patient been admitted in last 30 No days? Prior Living Arrangements House Household Members spouse Type of transporation used prior to Drives own vehicle admit Independent with ADL's Yes Is patient alert and oriented? Yes Caregiver for Another No DME Already Rented / Owned Cane Patient/Family Preference OP PT Therapy Barriers to Discharge No Comment Has a supportive at home. Discharge Plan Home Referrals Initiated None needed Whiteboard Updated in Patient Room with Yes name and ext. # of Umbrella Tipper Machine Review Status In Process Next Review Type Continued Stay Review Pre-Anesthesia Assessment Start: 05/16/22 08:47 Freq: Status: Active Protocol: Document 05/16/22 08:47 CAB (Rec: 05/16/22 09:12 CAB [id number]) Pre-Anesthesia Assessment Preferred Name Yamel Patient Information Reviewed Via Phone Assessment Assessment Completed With Patient Comment Pt has not been given any orders-she will check with surgeon office Primary Care Provider Jl Catalan Seen Specialist in Last 12 Months Yes Specialist Seen Orthopedist Primary Language Italian Preferred Language Italian Fruit Packer Face And Fill Required No Height 170.18 cm Weight 89.358 kg Body Mass Index (BMI) 30.8 Hearing Ability Normal Visual Assist Contacts,Glasses Dentition Type Teeth, Natural Present Barriers to Learning None Hx Anesthesia Reactions No Hx Family Anesthesia Reaction No Hx Malignant Hyperthermia No Hx Blood Transfusions No Anesthesia Review Requested No Jammer Operator No alcohol intake current alcohol intake frequency a few times a week Smoking Status Former smoker Tobacco type cigarettes how long ago did patient quit smoking Quit in college Substance Use Type does not use Pain Present Pain Reported Musculoskeletal Symptoms Abnormal Gait,Back Pain, Difficulty Walking,Joint Pain History of Falling (Recent or History of Yes ) Patient is completely paralyzed or No completely immobile Prosthesis or Orthotic Device Cane Mental Status Oriented to own ability Is patient on oxygen? No Does patient have VILLATORO/SOB Yes: Pt feels r/t deconditioning Hx Sleep Apnea No Currently Taking a Beta [place] No Can You Climb a Flight of Stairs Without No SOB Hx Chest Pain No Hx SOB Yes: Pt feels r/t deconditioning Hx Syncope or Dizziness No Anti-Coagulant Therapy Yes: Warfarin-hold 5 days per surgeon office-pt to get bridging instructions Has a Clinical Manager Home Care No Cardiac Testing No Hx Pacemaker/ICD No Pacemaker Rep Required? No Diet Type At Home Regular Dysphagia No Gastrointestinal Symptoms None Bladder Pattern Incontinent,Urgency Urinary Catheter Present No Hx Urinary Self Catheterization No Diabetes No HgbA1C 5.2 Date 10/25/21 Patient No Lactating No Hx Drug Resistant Organism No Presence of External or Internal Medical Yes: Left knee prosthesis Devices Have you had any close contact with No someone diagnosed with COVID-19? Received a COVID vaccine? Yes Received all doses? Yes Marital Status Lives With spouse Current Living Arrangements House Number of Floors (Floors) 3 or More Floors Support System Spouse Does the Patient Have Assistance After Yes Surgery Patient Discharge Plan Description Return Home Comment Pt not advised on length of stay per surgeon Feels Safe in Current Environment Yes Been Physically Hurt or Threatened By a No Person in Current Environment Do you have thoughts of harming yourself None or others? Are you currently considering suicide? No Do you have a plan to hurt yourself or No Plan others? Do You Have Any Spiritual Beliefs That No May Affect Your HC Choices? Do You Have Any Cultural Practices That No May Affect Your HC Choices? Who Can We Speak to About Patient's Care Family, friends Identifying Code for Release of Patient Declines to issue Information Health Care Proxy/Next of Kin Ja () Health Care Proxy Emergency Contact Name Ja () Emergency Contact Advance Directives? Yes Advance Directives on File No Requested Patient Bring Advanced Yes Directives DOS Power of Senior Solutions Engineer Yes Power of Senior Solutions Engineer Name Ja () Power of Senior Solutions Engineer PAC Instructions Do not shave/clip surgical site,Durable medical equipment ,Medications to take/avoid, Nasal antibiotic,No ETOH/ petroleum product on skin DOS, Pre-surgical wash,Sensory aids ,Sturdy shoes/comfortable clothes,Do not bring valuables and remove jewelry
--- NOTE | 2022-05-27 14:13 | PT.IPTN ---
Current Diagnoses Unilateral primary osteoarthritis, right knee (05/26/22) Surgery Performed Operation Date: 05/26/22 07:45 Actual Procedures p Total Knee Arthroplasty(Right) - Monica Hernandez MD Physical Therapy Treatment Note M2 PT-IP Current Condition Start: 05/26/22 16:06 Freq: NEEDED Status: Active Protocol: Document 05/27/22 11:30 LRN (Rec: 05/27/22 14:13 LRN [id number]) Physical Therapy Current Condition Current Condition Evaluation Date 05/27/22 Treatment Diagnosis s/p right TKA Onset Date 05/26/22 M3 PT-IP Subjective Start: 05/26/22 16:06 Freq: NEEDED Status: Active Protocol: Document 05/27/22 11:30 LRN (Rec: 05/27/22 14:11 LRN [id number]) Subjective Physical Therapy Visit Type Type Treatment Note Visit Start Time 11:30 Visit Stop Time 12:15 Total Visit Minutes 45 Physical Therapy Visit Comments Patient Comments Pt reports pain 4/10. During treatment pain was 6/10. After treatment pain 3/10. Patient Goals discharge home Therapy Pain Assessment Pain When Pain Assessed During Mobility Pain Present Pain Present Pain Reported Location right knee Intensity 4 Scale Used Numeric (0 - 10) M4 PT-IP Mobility and Gait Start: 05/26/22 16:06 Freq: NEEDED Status: Active Protocol: Document 05/27/22 11:30 LRN (Rec: 05/27/22 14:11 LRN [id number]) PT-Bed Mobility Assessment Supine to Sit Supine to Sit Minimal Assistance Sit to Supine Sit to Supine Minimal Assistance Scooting Scooting to Edge of Bed Moderate Assistance PT-Transfer Assessment Sit to and From Stand Sit to and from Stand Moderate Assistance Equipment Transfer Assistive Device Gait Belt,Front Wheeled Walker Transfers Transfer Destination Chair Comments Mobility Comments ModA for scooting R leg forward when transferring to EOB due to pain. Pt needed much cuing for hand placement and foot positioning on standing for best safety positioning. Pt pain limiting function. Gait Assessment Gait Gait Assistance Required: Minimum Assistance Distance (Feet) 6 Able to Maintain Weight Bearing Status Yes During Gait Assistive Devices Assistive Device Gait Belt,Front Wheeled Walker Gait Deviations General Gait Pattern Antalgic,Decreased Stride Length,Decreased Feet Clearance,Step-to Gait Factors Limiting Gait Function Factors Limiting Gait Function Decreased Strength,Pain Comments Gait Comments Pt needed much phys & verbal cuing throughout gait training for proper gait pattern and often tried placing her R foot outside the VILLA of the walker . Stair Climbing Assessment Comments Stair Climbing Comments Pt was not appropriate at this time for stair training due to poor tolerance with gait and decreased endurance. M5 PT-IP Objective Assessments Start: 05/26/22 16:06 Freq: NEEDED Status: Active Protocol: Document 05/27/22 11:30 LRN (Rec: 05/27/22 14:11 LRN [id number]) Orientation Orientation/Cognition Level of Alertness Alert Orientation Name,Day of Week,Place, Situation Language Function Ability No Deficits Noted Safety Awareness Understands Safety Issues Memory Description No Deficits Noted Sensation Assessment Sensation Gross Sensation Right LE Impaired Sensation Description Numbness M6 PT-IP Treatment Start: 05/26/22 16:06 Freq: NEEDED Status: Active Protocol: Document 05/27/22 11:30 LRN (Rec: 05/27/22 14:11 LRN [id number]) Physical Therapy Treatment Exercises Exercises Ankle Pumps,Gluteal Sets,Quad Sets,Heel Slides,Short Arc Quads Education Education Provided Precautions,Weight Bearing Status,Safety Other Treatments Other Treatment Performed Vitals taken: At start of therapy: SpO2 98% , BP 165/76, HR 105 At end of therapy: SpO2 99%, BP 164/77, HR 106 M7 PT-IP Assessment and Plan Start: 05/26/22 16:06 Freq: NEEDED Status: Active Protocol: Document 05/27/22 11:30 LRN (Rec: 05/27/22 14:11 LRN [id number]) PT Summary Assessment and Plan Potential Rehabilitation Potential Good Status of Condition at Evaluation Evolving Summary Impairments Pain,ROM,Strength,Bed Mobility ,Transfers,Gait,Activity Tolerance Assessment Summary Patient s/p right TKA 05/26/22. She demonstrated difficulty with transfer out of the L side of the bed and had much difficulty scooting to the edge of the bed. She demonstrated difficulty with proper use of walker for transfers sit<>stand and demonstrated poor knowledge of proper/safe gait pattern with use of FWW. The pt was not ready for stair ambulation due to poor endurance. Further transfer and gait training is needed, including stair ambulation for the pt to be safe to go home. Goals Bed Mobility Goal Standby Assistance Transfer Goal Contact Guard Assistance Gait Goal Contact Guard Assistance Gait Distance 75 Days to Meet Goals 4 Frequency of Treatment Frequency Of Treatment Twice a Day Treatment Plan Physical Therapy Treatment Plan Bed Mobility Training,Transfer Training,Gait Training, Therapeutic Exercise Weight Bearing Status Weight Bearing Status Weight Bear as Tolerated Recommendations To Nursing Amount of Assist Needed 1 Person Assist Discharge Recommendations PT Discharge Recommendations Home with Assistance Transportation Needs at Discharge Private Vehicle
[2022-05-27] MEDS: WARFARIN 5 MG TABLET PO (16:34)
[2022-05-27] MEDS: HYDROMORPHONE 2 MG TABLET PO (16:37)
--- NOTE | 2022-05-27 17:33 | PT.IPTN ---
Current Diagnoses Unilateral primary osteoarthritis, right knee (05/26/22) Surgery Performed Operation Date: 05/26/22 07:45 Actual Procedures p Total Knee Arthroplasty(Right) - Monica Hernandez MD Physical Therapy Treatment Note M2 PT-IP Current Condition Start: 05/26/22 16:06 Freq: NEEDED Status: Active Protocol: Document 05/27/22 11:30 LRN (Rec: 05/27/22 14:13 LRN [id number]) Physical Therapy Current Condition Current Condition Evaluation Date 05/27/22 Treatment Diagnosis s/p right TKA Onset Date 05/26/22 M3 PT-IP Subjective Start: 05/26/22 16:06 Freq: NEEDED Status: Active Protocol: Document 05/27/22 17:21 LJ (Rec: 05/27/22 17:33 LJ [id number]) Subjective Physical Therapy Visit Type Type Treatment Note Visit Start Time 14:18 Visit Stop Time 14:41 Total Visit Minutes 23 Notes Pt sitting in chair. Requests to go to the bathroom Number of SALES ORDER CLERK Visits 1 Physical Therapy Visit Comments Patient Comments Pain less today Patient Goals discharge home Therapy Pain Assessment Pain When Pain Assessed During Mobility Pain Present Pain Present Denied Pain Location right knee Intensity 7 M4 PT-IP Mobility and Gait Start: 05/26/22 16:06 Freq: NEEDED Status: Active Protocol: Document 05/27/22 17:21 LJ (Rec: 05/27/22 17:33 LJ [id number]) PT-Bed Mobility Assessment Sit to Supine Sit to Supine Standby Assistance,1 Person Assistance Scooting Scooting Up and Down in Bed Standby Assistance PT-Transfer Assessment Sit to and From Stand Sit to and from Stand Standby Assistance,Use of Upper Extremities Equipment Transfer Assistive Device Gait Belt,Front Wheeled Walker Transfers Transfer Destination Bed,Toilet Transfer Technique ambulated Transfer Ability Level of Assist Standby Assistance,Use of Upper Extremities Comments Mobility Comments SBA sit<>stand using grab bars in bathroom, FWW and arm rests from chair. Pt able to lift RLE onto bed. Only assist needed with mobility was slight assist to put pillow under RLE. Gait Assessment Gait Gait Assistance Required: Standby Assistance Distance (Feet) 15 Able to Maintain Weight Bearing Status Yes During Gait Assistive Devices Assistive Device Gait Belt,Front Wheeled Walker Gait Deviations General Gait Pattern Antalgic,Decreased Stride Length,Decreased Feet Clearance,Step-to Gait Factors Limiting Gait Function Factors Limiting Gait Function Decreased Activity Tolerance, Decreased Strength,Limited Range of Motion,Pain,Poor Balance Comments Gait Comments Pt improved with mobility, transfers, and gait. Able to transfer SBA to/from chair, toilet, and bed. Ambulation still antalgicwith limited ROM but able to bear more weight today. Stair Climbing Assessment Comments Stair Climbing Comments Will complete tomorrow M5 PT-IP Objective Assessments Start: 05/26/22 16:06 Freq: NEEDED Status: Active Protocol: Document 05/27/22 11:30 LRN (Rec: 05/27/22 14:11 LRN [id number]) Orientation Orientation/Cognition Level of Alertness Alert Orientation Name,Day of Week,Place, Situation Language Function Ability No Deficits Noted Safety Awareness Understands Safety Issues Memory Description No Deficits Noted Sensation Assessment Sensation Gross Sensation Right LE Impaired Sensation Description Numbness M6 PT-IP Treatment Start: 05/26/22 16:06 Freq: NEEDED Status: Active Protocol: Document 05/27/22 17:21 LJ (Rec: 05/27/22 17:33 [id number]) Physical Therapy Treatment Exercises Exercises Ankle Pumps,Gluteal Sets,Quad Sets,Short Arc Quads Education Education Provided Precautions,Weight Bearing Status,Safety M7 PT-IP Assessment and Plan Start: 05/26/22 16:06 Freq: NEEDED Status: Active Protocol: Document 05/27/22 17:21 LJ (Rec: 05/27/22 17:33 [id number]) PT Summary Assessment and Plan Potential Rehabilitation Potential Good Status of Condition at Evaluation Evolving Summary Impairments Pain,ROM,Strength,Bed Mobility ,Transfers,Gait,Activity Tolerance Assessment Summary SBA with transfers with heavy reliance on UEs. Bed mobility and ambulation improved. Further transfer and gait training is needed, including stair ambulation for the pt to be safe to go home. Goals Bed Mobility Goal Standby Assistance Transfer Goal Contact Guard Assistance Gait Goal Contact Guard Assistance Gait Distance 75 Days to Meet Goals 4 Frequency of Treatment Frequency Of Treatment Twice a Day Treatment Plan Physical Therapy Treatment Plan Bed Mobility Training,Transfer Training,Gait Training, Therapeutic Exercise Weight Bearing Status Weight Bearing Status Weight Bear as Tolerated Recommendations To Nursing Amount of Assist Needed 1 Person Assist Discharge Recommendations PT Discharge Recommendations Home with Assistance Transportation Needs at Discharge Private Vehicle
[2022-05-27 17:53] VITALS: BP 130/66; PULSE 67; RESP 18; TEMP 36.6; O2SAT 98
[2022-05-27 20:48] VITALS: BP 154/64; PULSE 99; RESP 19; TEMP 36.9; O2SAT 97
[2022-05-28] VITALS: BP 145/67; PULSE 103; RESP 17; TEMP 37.2; O2SAT 96
[2022-05-28] MEDS: HYDROCODONE/ACET 5/325 TABLET 2 TAB PO (02:47)
[2022-05-28 04:00] VITALS: BP 153/70; PULSE 98; RESP 19; TEMP 36.9; O2SAT 97
[2022-05-28 06:00] VITALS: RESP 20
--- NOTE | 2022-05-28 09:06 | PM.PREOP ---
Pre-operative Note Interval Note History & Physical reviewed/Exam performed by Physician: Yes Changes to H&P: No
[2022-05-28] MEDS: ENOXAPARIN 100 MG/ML SYRINGE 90 MG SUBCUT (10:16)
[2022-05-28] MEDS: DOCUSATE 100 MG CAPSULE PO (10:17)
--- NOTE | 2022-05-28 10:20 | PT-IP ANOTE ---
Pt declines PT due to pain. Pt states she just received pain medication and RLE is feeling more heavy and swollen than it has. ANALYST [employer]OCHEM[employer]OSPECTING reapplies SCDs, advises pt to use ankle pump ex's, and pt is agreeable to working with PT in about 30 minutes for stair training after pain medication has taken effect.
[2022-05-28 12:00] VITALS: BP 166/77; PULSE 112; RESP 18; TEMP 37.1; O2SAT 98
--- NOTE | 2022-05-28 13:07 | PT.IPTN ---
Current Diagnoses Unilateral primary osteoarthritis, right knee (05/26/22) Surgery Performed Operation Date: 05/26/22 07:45 Actual Procedures p Total Knee Arthroplasty(Right) - Monica Hernandez MD Physical Therapy Treatment Note M2 PT-IP Current Condition Start: 05/26/22 16:06 Freq: NEEDED Status: Active Protocol: Document 05/27/22 11:30 LRN (Rec: 05/27/22 14:13 LRN [id number]) Physical Therapy Current Condition Current Condition Evaluation Date 05/27/22 Treatment Diagnosis s/p right TKA Onset Date 05/26/22 M3 PT-IP Subjective Start: 05/26/22 16:06 Freq: NEEDED Status: Active Protocol: Document 05/28/22 12:01 LANIM (Rec: 05/28/22 13:07 NB [id number]) Subjective Physical Therapy Visit Type Type Treatment Note Visit Start Time 11:23 Visit Stop Time 12:01 Total Visit Minutes 38 Notes Pt in bed and agreeable to working with PT for stair training. Number of PROGRAM LEAD Visits 2 Physical Therapy Visit Comments Patient Comments Pain better managed now. I've perked up. Pt states they have been doing ankle pumps and wearing SCDs for the past hour and R leg feels better. Patient Goals stair training for discharge home Therapy Pain Assessment Pain When Pain Assessed During Mobility Pain Present Pain Present Pain Reported Location right knee Description With Movement Pain Behaviors Facial Grimacing,Guarding, Holding Area,Wincing Pain Management Techniques Apply Cold,Elevation, Modification of Treatment,Re- positioning,Timing of Activity with Medications M4 PT-IP Mobility and Gait Start: 05/26/22 16:06 Freq: NEEDED Status: Active Protocol: Document 05/28/22 12:01 NBM (Rec: 05/28/22 13:07 NB [id number]) PT-Bed Mobility Assessment Supine to Sit Supine to Sit Standby Assistance Scooting Scooting to Edge of Bed Moderate Assistance Scooting Up and Down in Bed Standby Assistance PT-Transfer Assessment Sit to and From Stand Sit to and from Stand Contact Guard Assistance, Minimal Assistance,Use of Upper Extremities Equipment Transfer Assistive Device Gait Belt,Front Wheeled Walker Transfers Transfer Destination Chair Transfer Technique Stand Step Pivot Transfer Ability Level of Assist Contact Guard Assistance, Minimal Assistance,Use of Upper Extremities Comments Mobility Comments Pt in bed upon arrival w/ SCDs , RLE elevated on pillow and ice to R knee. Ankle pumps, glute sets, heel slide to RLE w/ pt providing manual overpressure. SBA supine> longsit, scooting to EOB modA for RLE support to SBA as pt hooked LLE under RLE for independent control. Treatment focus stair training, pt requests w/c instead of FWW d/ t fatigue and pain apprehension w/ weightbearing. Sitting EOB>stand w/ FWW - safety cues and education for hand placement. Step pivot transfer to w/c w RLE elevated . Sit>stand from w/c to training stairs w/ bilateral handrails w/ cues for glute engagement. Pt ascends/ descends 3 steps x 2 w/ mary handrails step-to w/ cues for upright posture. Spouse arrives during stair training so performed caregiver training as well. (Stand w/ FWW>Sit in w/c SBA w/ RLE elevated. Sit>Stand min A w/ FWW w/c to Chair in room w/ cues for hand placement and to back up completely to chair before reaching back to sit. Pt left in reclined position w / RLE elevated on pillow and all needs and call light within reach. Gait Assessment Assistive Devices Assistive Device Gait Belt,Front Wheeled Walker Comments Gait Comments Pt declined to ambulate to training stairs due to fatigue and pain apprehension. Stair Climbing Assessment Evaluation Level of Assist On Stairs Standby Assistance Devices Stair Climbing Assistive Devices Left Railing,Right Railing Technique/Endurance Stair Climbing Direction Ascend and Descend Stair Climbing Technique Step to Step Number of Steps Climbed 6 Stair Climbing Set # Repetitions (reps) 2 Comments Stair Climbing Comments Pt completed ascending/ descending step to technique 2 sets x 3 steps w/ R and L handrails. Cues for upright posture and correct use for ascending leading w/ LLE and descending w/ RLE. M5 PT-IP Objective Assessments Start: 05/26/22 16:06 Freq: NEEDED Status: Active Protocol: Document 05/27/22 11:30 LRN (Rec: 05/27/22 14:11 LRN [id number]) Orientation Orientation/Cognition Level of Alertness Alert Orientation Name,Day of Week,Place, Situation Language Function Ability No Deficits Noted Safety Awareness Understands Safety Issues Memory Description No Deficits Noted Sensation Assessment Sensation Gross Sensation Right LE Impaired Sensation Description Numbness M6 PT-IP Treatment Start: 05/26/22 16:06 Freq: NEEDED Status: Active Protocol: Document 05/28/22 12:01 NB (Rec: 05/28/22 13:07 [facility] [id number]) Physical Therapy Treatment Exercises Exercises Ankle Pumps,Gluteal Sets,Quad Sets,Short Arc Quads Education Education Provided Precautions,Weight Bearing Status,Safety Other Treatments Other Treatment Performed Vitals taken: At start of therapy: BP 166/77 M7 PT-IP Assessment and Plan Start: 05/26/22 16:06 Freq: NEEDED Status: Active Protocol: Document 05/28/22 12:01 [facility] (Rec: 05/28/22 13:07 [facility] [id number]) PT Summary Assessment and Plan Potential Rehabilitation Potential Good Status of Condition at Evaluation Evolving Summary Impairments Pain,ROM,Strength,Bed Mobility ,Transfers,Gait,Activity Tolerance Assessment Summary Pt is able to complete 6 steps ascending and descending safely with bilateral handrails w/ cues for upright posture and glute engagement. Spouse is present for caregiver training and educated both pt and spouse for positioning below pt for stairs, bed mobility ex's ( ankle pumps/circles, heel slides, glute sets and bridges as tolerated), safe hand placement for Sit<>Stand w/ FWW, and pain and swelling management (ankle pumps, elevation, ice, pain medication as scheduled). Pt and spouse can teach back, and spouse demonstrates safe and appropriate use of gait belt and w/c brakes. Pt has 5 steps to entry and will stay on first floor with access to bathroom on first floor so no need to use full flight of steps to discharge home. No gait assessment this treatment due to patient's activity tolerance and pain apprehension with weight bearing. TEACHER HEARING IMPAIRED notified pt needing new ice pack and to use SCDs when in bed. Goals Bed Mobility Goal Standby Assistance Transfer Goal Contact Guard Assistance Gait Goal Contact Guard Assistance Gait Distance 75 Days to Meet Goals 4 Frequency of Treatment Frequency Of Treatment Twice a Day Treatment Plan Physical Therapy Treatment Plan Bed Mobility Training,Transfer Training,Gait Training, Therapeutic Exercise Weight Bearing Status Weight Bearing Status Weight Bear as Tolerated Recommendations To Nursing Amount of Assist Needed 1 Person Assist Discharge Recommendations PT Discharge Recommendations Home with Assistance Transportation Needs at Discharge Private Vehicle
[2022-05-28] MEDS: HYDROCODONE/ACET 5/325 TABLET 1 TAB PO (15:28)
--- NOTE | 2022-05-28 15:53 | PC.NURSE ---
pt is alert and oriented, cms intact po vicodin controlling surgical pain to right knee. she has trained with PT and ok to go home. verbal DC orders over the phone by Dr. Alcantara instructional writer ortho. pt dc home with verbal and written instruction.
== END 2022-05-28 15:30 | disposition home or self-care (01) ==
LOC: OR 05-29 06:35
PROVIDERS: Admitting Provider Orthopaedic Surgery Foot and Ankle Surgery; PCP Family Medicine; Referring Provider Family Medicine; Visit Provider Orthopaedic Surgery Foot and Ankle Surgery
PROC: 0SRC0JZ Replacement of Right Knee Joint with Synthetic Substitute, Open Approach (ICD-10-PCS; CPT 27447; principal; 2022-05-26 07:45)
DX: M17.11 Unilateral primary osteoarthritis, right knee (principal); Z20.822 Contact with and (suspected) exposure to COVID-19
CPT/HCPCS: 27447; 73560; 85610; 87635; 97110; 97116; 97161; 97530; C1776; C9803; G0378; C1713; C9290; J0690; J1100; J1170; J1650; J2250; J2405; J2704; J3010